=== PATIENT | male | born 1930 | race Caucasian/White ===

== ENCOUNTER 2019-03-30 13:45 | Inpatient (IN) | payer OTHER ==
[~2019-03-30] VITALS: Ht 185.4 cm; Wt 113.8 kg
[~2019-03-30 13:45] MED LIST: IPRAT-ALBUT 0.5-3 ML; LOPRESSOR50 MG PO; MUCINEX1200 MG PO
[2019-03-30 13:47] VITALS: BP 146/71
[2019-03-30 14:01] LABS: ABSOLUTE NEUTROPHILS 9.7 thou/uL (1.4-8.2); BASOPHILS 0.2 % (0.0-2.0); HEMATOCRIT 39.5 % (42.0-52.0); LYMPHOCYTES 2.4 % (24.0-44.0); MCH 29.3 pg (26.0-34.0); MCHC 32.9 g/dL (28.0-37.0); MCV 88.8 fL (80.0-100.0); MONOCYTES 6.6 % (1.0-8.0); PLATELET COUNT 151 thou/uL (150-400); POLYS 90.8 % (36.0-66.0); RBC 4.45 mil/uL (4.50-6.00); RDW 15.1 % (10.5-14.5); WBC 10.7 thou/uL (4.0-11.0)
[2019-03-30 14:10] LABS: ANION GAP 8 mmol/L (7-16); BUN 23 mg/dL (7-18); CALCIUM 9.4 mg/dL (8.5-10.1); CHLORIDE 102 mmol/L (98-107); CO2 27 mmol/L (21-32); CREATININE 1.1 mg/dL (0.7-1.3); GLUCOSE 190 mg/dL (74-106); POTASSIUM 4.4 mmol/L (3.5-5.1); SODIUM 137 mmol/L (136-145)
[2019-03-30 14:19] LABS: ALBUMIN 2.7 g/dL (3.4-5.0); LIPASE 50 U/L (73-393); SGOT 44 U/L (15-37); SGPT 20 U/L (30-65); TOTAL BILIRUBIN 2.5 mg/dL (<0.1-1.0); TROPONIN-I <0.06 ng/mL (<0.06)
[2019-03-30 16:48] VITALS: BP 126/51
[2019-03-30 18:49] VITALS: BP 122/60
[2019-03-30 19:25] LABS: URINE BILIRUBIN NEGATIVE (Negative); URINE BLOOD TRACE (Negative); URINE CLARITY CLEAR; URINE COLOR YELLOW; URINE GLUCOSE-RANDOM* NEGATIVE (Negative); URINE KETONES NEGATIVE (Negative); URINE LEUKOCYTES-REFLEX NEGATIVE (Negative); URINE NITRITE-REFLEX NEGATIVE (Negative); URINE PROTEIN (DIPSTICK) TRACE (Negative)
[2019-03-30 19:48] VITALS: BP 133/62
[2019-03-30 23:57] VITALS: BP 121/69
[2019-03-31 04:33] VITALS: BP 134/72
--- NOTE | 2019-03-31 05:04 | NUR ---
ASSUMED PT CARE AT 1900. PT WAS AN ER ADMIT AT SHIFT CHANGE. PT IS ALERT AND ORIENTED. FAMILY AT BEDSIDE. PT COMPLAINS OF PAIN TO RIGHT UPPER QUADRANT. PAIN MED ADMINISTERED. ADMISSION ASSESSMENT AND EDUCATION COMPLETED WITH FAMILY. PT IS STABLE. VITAL SIGNS STABLE. LOW GRADE FEVER NOTED. PT IS STABLE THROUGHOUT THE NIGHT. NO N&V. PT IS NPO. DENIES ANY FURTHER NEEDS AT THIS TIME.
--- NOTE | 2019-03-31 07:32 | EKG ---
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
[2019-03-31 08:00] VITALS: BP 142/69
[2019-03-31 10:17] LABS: ABSOLUTE NEUTROPHILS 10.9 thou/uL (1.4-8.2); BASOPHILS 0.4 % (0.0-2.0); LYMPHOCYTES 3.7 % (24.0-44.0); MCHC 32.3 g/dL (28.0-37.0); MCV 89.8 fL (80.0-100.0); MONOCYTES 6.6 % (1.0-8.0); PLATELET COUNT 118 thou/uL (150-400); POLYS 89.3 % (36.0-66.0); RBC 4.12 mil/uL (4.50-6.00); RDW 15.5 % (10.5-14.5); WBC 12.2 thou/uL (4.0-11.0)
[2019-03-31 10:31] LABS: ALBUMIN 2.2 g/dL (3.4-5.0); CREATININE 1.1 mg/dL (0.7-1.3); POTASSIUM 3.8 mmol/L (3.5-5.1); TOTAL BILIRUBIN 2.3 mg/dL (<0.1-1.0); TOTAL PROTEIN 6.1 g/dL (6.4-8.2)
--- NOTE | 2019-03-31 10:59 | 2DMMODE ---
[facility] [address] [place] [address] 2 D/M-MODE ECHOCARDIOGRAM Name: PATRICIA VILLANUEVA Room #: 206-P ADM IN M.R.#: [id number] Admission: 03/30/19 Attend Phys: Zaira Choi MD Discharge: Date of : [birth year] Report #: [id number] THIS REPORT FOR: //name// APPROVED REPORT Study performed: 03/31/2019 10:05:45 EXAM: Comprehensive 2D, Doppler, and color-flow Echocardiogram Patient Location: Bedside Room #: 206 Status: routine BSA: 2.39 HR: 110 bpm BP: 134/72 mmHg Rhythm: Atrial Fibrillation Other Information Study Quality: Adequate Technically limited study due to inability to position patient, body habitus. Indications Atrial Fibrillation CAD Hypertension/HDD Pre-op 2D Dimensions RVDd: 41.94 mm IVSd: 14.91 (7-11mm) LVOT Diam: 24.13 (18-24mm) LVDd: 44.39 mm PWd: 14.46 (7-11mm) Ascending Ao: 35.54 (22-36mm) LVDs: 29.08 (25-40mm) Aortic Root: 37.56 mm IVC: 17.00 mm Volumes Left Atrial Volume (Systole) Single Plane 4CH: 73.50 mL Single Plane 2CH: 105.73 mL LA ESV Index: 42.00 mL/m2 Aortic Valve AoV Peak Pietro.: 1.14 m/s AO Peak Gr.: 5.23 mmHg LVOT Max P.03 mmHg LVOT Max V: 0.87 m/s VANDA Vmax: 3.48 cm2 [facility] [address] [address] 2 D/M-MODE ECHOCARDIOGRAM Name: PATRICIA VILLANUEVA Room #: 206-P ADM IN .R.#: [id number] Admission: 03/30/19 Attend Phys: Zaira Choi MD Discharge: Date of : [birth year] Report #: [id number] Mitral Valve MV Decel. Time: 168.54 ms MV E Max Pietro.: 1.31 m/s IVRT: 50.75 ms Pulmonary Valve PV Peak Pietro.: 1.00 m/s PV Peak Gr.: 4.08 mmHg Tricuspid Valve TR Peak Pietro.: 2.77 m/s RAP Estimate: 5.00 mmHg TR Peak Gr.: 30.73 mmHg PA Pressure: 36.00 mmHg Left Ventricle The left ventricle is normal size. Mild to moderate concentric left ventricular hypertrophy. The left ventricular systolic function is normal. The left ventricular ejection fraction is within the normal range. LVEF is 60-65%. This study is not technically sufficient to allow evaluation of the LV diastolic function due to atrial fibrillation. Right Ventricle Right ventricle is mildly dilated. The right ventricular systolic function is normal. Atria Left atrium is moderately dilated. Right atrium is moderately dilated. Aortic Valve Aortic valve is mildly calcified. Trace to mild aortic regurgitation. There is no aortic valvular stenosis. Mitral Valve The mitral valve is normal in structure. Mild mitral regurgitation. No evidence of mitral valve stenosis. Tricuspid Valve The tricuspid valve is normal in structure. Mild tricuspid regurgitation. PAP is estimated at 36 mmHg. Pulmonic Valve Pulmonic valve is not well visualized. [employer] [facility] [address] [place] [address] 2 D/M-MODE ECHOCARDIOGRAM Name: PATRICIA VILLANUEVA Room #: 206-P ADM IN M.R.#: [id number] Admission: 03/30/19 Attend Phys: Zaira Choi MD Discharge: Date of : [birth year] Report #: [id number] The aortic root is normal in size. IVC is normal in size and collapses >50% with inspiration. Pericardium There is no pericardial effusion. <Conclusion> The left ventricle is normal size. LVEF is 60-65%. Right ventricle is mildly dilated. Left atrium is moderately dilated. Right atrium is moderately dilated. Aortic valve is mildly calcified. Trace to mild aortic regurgitation. The mitral valve is normal in structure. Mild mitral regurgitation. The tricuspid valve is normal in structure. Mild tricuspid regurgitation. PAP is estimated at 36 mmHg. <ELECTRONICALLY SIGNED> By: Young Cantu MD 03/31/19 1058 [id number] [id number] Young Cantu MD /INF
[2019-03-31 12:27] VITALS: BP 156/72
--- NOTE | 2019-03-31 13:42 | NUR ---
met with patient and family at bedside. Patient admits from [facility] therapy unit. Family reports he has not been there that long and plan is to return to [facility] at hi. Left [facility] admission a message and plan to update facility. Post plan from [facility] is to live with his dtr.
[2019-03-31 15:47] VITALS: BP 135/57
--- NOTE | 2019-03-31 16:52 | NUR ---
I have reviewed the documentation by MARGA ROYAL from 03/31/19 to 03/31/19 and I concur with it. MJ LEON
--- NOTE | 2019-03-31 16:58 | NUR ---
[facility]FIR[facility] AND LEFT MSG WITH ALICIA IN ADM THAT PT IN RM 206.
--- NOTE | 2019-03-31 19:06 | NUR ---
ASSUMMED PT CARE AT APPROXIMATELY 0700. PT A&O X4. ASSESSMENT CHARTED. FALL PRECAUTIONS IN PLACE. PT DENIES HAVING CHEST PAIN. PT STATES HE BECOMES SOB ON EXERSION. PT O2 SAT STABLE. PT STATES HE HAS ACUTE PAIN IN HIS ABDOMINAL AREA. PT RECEIVED ANALGESICS. PT STATED PAIN WAS RELEIVED. PT STATED HE WAS NAUSEATED. PT RECIEVED NAUSEA MEDICATION. PT'S NAUSEA WAS RELIEVED. PT HAD A LOW GRADE FEVER. NOTIFIED. STATED TO CONTINUE TO MONITOR. PT CONTINUED TO BE IN PAIN BETWEEN PAIN MEDICATION DOSES. NOTIFIED DR. ORDERED NEW MEDS. NEW MEDS IMPLEMENTED. WILL CONTINUE TO MONITOR PAIN. PT AND PT'S FAMILY NOTIFIED ABOUT POC. PT AND PT'S FAMILY STATED UNDERSTANDING AND DENIED HAVING FURTHER CONCERNS. PT COMFORTABLE AND SLEEPING IN BED. PT DENIES HAVING FURTHER CONCERNS. VITAL SIGNS STABLE.
[2019-03-31 20:11] VITALS: BP 137/55
--- NOTE | 2019-04-01 04:38 | NUR ---
ASSUMED PT CARE AT 1900. WITH NO SIGN OF DISTRESS NOTED IN PT. PT IS DROWSY AND SLEEPY. NO SIGN OF DISTRESS NOTED, ASSESSMENT COMPLETED AND DOCUMENTED. FALL PRECAUTION IN PLACE. SCHEDULED MEDS ADMINISTERED TO PT. PT TOLERATED PO INTAKE. DENIES ANY FURTHER NEEDS AT THIS TIME.
[2019-04-01 05:32] LABS: ABSOLUTE NEUTROPHILS 10.2 thou/uL (1.4-8.2); BASOPHILS 0.1 % (0.0-2.0); HEMATOCRIT 34.4 % (42.0-52.0); HEMOGLOBIN 11.1 gm/dL (14.0-18.0); LYMPHOCYTES 4.8 % (24.0-44.0); MCH 29.3 pg (26.0-34.0); MCHC 32.3 g/dL (28.0-37.0); MCV 90.8 fL (80.0-100.0); MONOCYTES 5.4 % (1.0-8.0); PLATELET COUNT 127 thou/uL (150-400); POLYS 89.7 % (36.0-66.0); RBC 3.79 mil/uL (4.50-6.00); RDW 15.7 % (10.5-14.5); WBC 11.4 thou/uL (4.0-11.0)
[2019-04-01 05:35] LABS: CALCIUM 8.9 mg/dL (8.5-10.1); CREATININE 1.2 mg/dL (0.7-1.3); POTASSIUM 3.4 mmol/L (3.5-5.1); TOTAL BILIRUBIN 1.8 mg/dL (<0.1-1.0); TOTAL PROTEIN 5.9 g/dL (6.4-8.2)
[2019-04-01 05:50] VITALS: BP 146/54
[2019-04-01 06:40] LABS: ALBUMIN 2.1 g/dL (3.4-5.0)
[2019-04-01] MEDS ORDERED: FUROSEMIDE 20 M20 MG PO (07:15)
[2019-04-01] MEDS ORDERED: KLOR-CON M2020 MEQ PO (07:16)
[2019-04-01] MEDS ORDERED: FLONASE 0.05%50 MCG NASAL (07:17)
[2019-04-01] MEDS ORDERED: COLACE100 MG PO (07:18)
--- NOTE | 2019-04-01 07:23 | H ---
[facility] [place] [address] HISTORY AND PHYSICAL Name: PATRICIA VILLANUEVA Room #: 206-P ADM IN M.R.#: [id number] Admission: 03/30/19 Attend Phys: Zaira Choi MD Discharge: Date of : [birth year] Report #: [id number] THIS REPORT FOR: //name// CC: Zaira ALEJO physician/PCP DATE OF SERVICE: 03/30/2019 ADMISSION NOTE HISTORY OF PRESENT ILLNESS: The patient is an 88-year-old male who was brought to the Emergency Room because of nausea, vomiting and abdominal pain that started on Sunday morning. The patient was having extensive pain at that time. The patient denies any fever or chills. The patient said that he had a bowel movement on Sunday, but since then he did not have any further bowel movements. The patient on arrival to the Emergency Room was found to have acute abdomen with cholecystitis. The patient went into atrial fibrillation with rapid ventricular response, but that was corrected with the use of Cardizem. The patient denied any chest pain or shortness of breath, but he indicated that taking deep breaths will make his abdominal pain worse. PAST MEDICAL HISTORY: The patient's past medical history is significant for atrial fibrillation for which the patient is chronically anticoagulated. The patient had a previous history of CVA with left hemiparesis. The patient has a history of hypertension. MEDICATIONS: Unfortunately, medications are not available because we did not get a copy of his medications from the correction facility. ALLERGIES: SHRIMP. SOCIAL HISTORY: The patient denies any history of smoking, alcohol use or drug use. FAMILY HISTORY: Not contributory. REVIEW OF SYSTEMS: Negative besides what was mentioned above. PHYSICAL EXAMINATION: VITAL SIGNS: On arrival to the hospital, the patient's temperature was 98.7, pulse 127 that dropped to 93, respirations 35, dropped to 20, blood pressure 146/71. Oxygen saturation is 96%. HEAD AND NECK: Pupils are equal and reacting to light. There is no icterus. Nasal mucosa was normal. Oropharynx was wet. NECK: Supple, no lymphadenopathy. LUNGS: Clear to auscultation with good air entry bilaterally. [facility] [address] [place] [address] HISTORY AND PHYSICAL Name: PATRICIA VILLANUEVA Room #: 206-P ADM IN M.R.#: [id number] Admission: 03/30/19 Attend Phys: Zaira Choi MD Discharge: Date of : [birth year] Report #: [id number] CARDIAC: S1, S2, without any murmur or gallop. ABDOMEN: Showed tenderness mainly on the right side of the abdomen. No rebound tenderness, no rigidity. Bowel sounds are present, but hypoactive. EXTREMITIES: Without any edema. LABORATORY DATA: Showed a white count of 10.7, hemoglobin 13, hematocrit 39.5, platelet count 151, neutrophils are 90%. Lactic acid 2.9. Comprehensive panel showed sodium of 137, potassium 4.4, chloride 102, bicarbonate 27, anion gap 8, BUN 23, creatinine 1.1, glucose 190, AST 44, lipase 50, total bilirubin 2.5, alkaline phosphatase 151, ALT 20, albumin 2.7. Troponin less than 0.06. Abdominal x-ray showed no acute pulmonary process. Multiple calcifications overlying the right upper abdomen could represent gallstones without a distended gallbladder. Ultrasound of the abdomen showed cholelithiasis with gallbladder distention and mild gallbladder wall thickening. There is no pericholecystic fluid and the sonographic [place] sign is negative. Overall, no definitive findings of acute cholecystitis, moderate left hydronephrosis of uncertain etiology, mild splenomegaly, hepatic steatosis. CT of the abdomen showed distended gallbladder with cholelithiasis, gallbladder wall thickening and pericholecystic fluid inflammation, highly suspicious for acute cholecystitis and extra renal pelvis of the left kidney is moderate dilated without dilation of the left ureter suggestive of a chronic UPJ obstruction. There is nonobstructive 1.4 cm calculus within the lower left kidney. Scattered diverticulosis without evidence of diverticulitis. Nonvisualization of the appendix, small fat containing left inguinal hernia. Repeated lactic acid is 2.3, then 2.2. Urinalysis showed trace protein and trace blood. Repeated lactic acid is 2.5. Electrocardiogram showed atrial fibrillation with prolonged QT interval. No previous EKG to compare with. Blood culture is showing no growth. ASSESSMENT AND PLAN: 1. Acute cholecystitis. 2. Atrial fibrillation with rapid ventricular response. 3. Previous history of CVA with left hemiparesis. The patient will be admitted to the hospital with the above-mentioned diagnoses. We had a consultation for a general surgeon and Cardiology because of the atrial fibrillation with rapid ventricular response. The patient is to start on broad spectrum antibiotics. I will contact the assisted to have a list of the patient's medications and sent to us. The patient is on Eliquis. For this reason, we will hold the Eliquis for now and we will hold the surgical intervention for about 2 days. I will continue with the pain management. All the patient's records were reviewed [address] [address] HISTORY AND PHYSICAL Name: PATRICIA VILLANUEVA Room #: 206-P ADM IN M.R.#: [id number] Admission: 03/30/19 Attend Phys: Zaira Choi MD Discharge: Date of : [birth year] Report #: [id number] and the patient's x-rays were reviewed. We will continue to monitor the patient. I discussed this plan with the patient's nurse and with his daughter. <ELECTRONICALLY SIGNED> By: Zaira Choi MD 04/01/19 0723 Zaira Choi MD /nt
[2019-04-01] MEDS ORDERED: XARELTO20 MG PO (07:54)
[2019-04-01 07:59] VITALS: BP 110/40
--- NOTE | 2019-04-01 08:07 | EKG ---
[address] [facility] [place] [address] ELECTROCARDIOGRAM REPORT Name: PATRICIA VILLANUEVA Room #: 206-P ADM IN M.R.#: [id number] Admission: 03/30/19 Attend Phys: Zaira Choi MD Discharge: Date of : [birth year] Report #: [id number] THIS REPORT FOR: //name// 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: LEE : 1930 Requested By: Rudi Bermudez Order Number: [id number] MD: Rudi Bermudez Measurements Intervals [place] Rate: 100 P: [place]: QRS: 3 QRSD: 95 T: 5 QT: 374 QTc: 483 Interpretive Statements Atrial fibrillation Borderline low voltage, extremity leads Borderline prolonged QT interval Compared to ECG 03/30/2019 14:04:45 No significant changes Electronically Signed On 04-01-2019 8:07:38 GEOSCIENTIST by Rudi Bermudez [email or web address] <ELECTRONICALLY SIGNED> By: Rudi Bermudez MD, [facility] 04/01/19806 1 1 Rudi Bermudez MD, FACC /EPI
[2019-04-01 08:13] LABS: APTT 32.2 Seconds (24.5-32.8); INR 1.2; PROTIME 12.5 Seconds (9.3-11.4)
[2019-04-01 12:15] VITALS: BP 128/62
[2019-04-01 16:39] VITALS: BP 150/62
--- NOTE | 2019-04-01 19:40 | NUR ---
ASSUMMED PT CARE AT APPROXIMATELY 700. PT A&O X4. ASSESSMENT CHARTED. FALL PRECAUTIONS IN PLACE. PT DENIES HAVING CHEST PAIN. PT STATES HE BECOMES SOB ON EXERSION. O2 SAT STABLE. PT STATES HE HAS ACUTE PAIN. PT RECEIVED ANALGESICS. PT STATED ANALGESICS HELPED RELEIVE PAIN. PT AND PT FAMILY EDUCATED ABOUT POC. PT AND PT'S FAMILY STATED UNDERSTANDING AND DENIED HAVING FURTHER QUESTIONS. PT DRAIN C/D/I. PT COMFORTABLE IN BED. PT DENIES HAVING FURTHER CONCERNS. VITAL SIGNS STABLE. BLOOD SUGARS STABLE.
[2019-04-01 19:50] VITALS: BP 138/53
[2019-04-02 03:43] VITALS: BP 148/79
--- NOTE | 2019-04-02 05:23 | NUR ---
ASSUMED PT CARE AT 1900. NO SIGN OF DISTRESS NOTED IN PT. PT ALERT AND ORIENTED. BILIARY DRAIN IN PLACE. PT IS STABLE. DENIES PAIN. VITAL SIGNS STABLE. ASSESSMENT COMPLETED AND DOCUMENTED. FALL PRECAUTION IN PLACE. SCHEDULED MEDS ADMINISTERED TO PT. PT TOLERATED PO INTAKE. NO FURTHER NEEDS AT THIS TIME.
[2019-04-02 05:24] LABS: ALBUMIN 1.9 g/dL (3.4-5.0); CALCIUM 8.3 mg/dL (8.5-10.1); TOTAL BILIRUBIN 1.7 mg/dL (<0.1-1.0); TOTAL PROTEIN 5.3 g/dL (6.4-8.2)
[2019-04-02 05:37] LABS: ABSOLUTE NEUTROPHILS 5.6 thou/uL (1.4-8.2); BASOPHILS 0.1 % (0.0-2.0); HEMATOCRIT 34.2 % (42.0-52.0); HEMOGLOBIN 11.2 gm/dL (14.0-18.0); LYMPHOCYTES 8.9 % (24.0-44.0); MCH 29.5 pg (26.0-34.0); MCHC 32.7 g/dL (28.0-37.0); MCV 90.1 fL (80.0-100.0); MONOCYTES 5.3 % (1.0-8.0); PLATELET COUNT 115 thou/uL (150-400); POLYS 85.7 % (36.0-66.0); RBC 3.79 mil/uL (4.50-6.00); RDW 15.4 % (10.5-14.5); WBC 6.5 thou/uL (4.0-11.0)
[2019-04-02 07:40] VITALS: BP 172/79
[2019-04-02 11:00] VITALS: BP 139/60
--- NOTE | 2019-04-02 13:53 | NUR ---
[facility] AND SPOKE WITH ALICIA IN ADM.
--- NOTE | 2019-04-02 15:47 | NUR ---
[facility] consult. Patient possible candidate for [facility] they are following.
[2019-04-02 16:15] VITALS: BP 160/73
--- NOTE | 2019-04-02 18:17 | NUR ---
ASSUMED CARE AT SHIFT CHANGE, ALERT AND ORIENTED X3-4. BP 139-172/60-70, AFEBRILE, AND AFIB ON THE MONITOR. MEDICATED WITH SCHEDULED MEDICATIONS. VIDEO SWALLOW EVAL COMPLETED TODAY, AND HE REMAINS ON ASPIRATION PRECAUTIONS. BILIARY DRAIN INATCT. DENIES ANY PAIN AND WILL CONTINUE WITH POC.
[2019-04-02 20:12] VITALS: BP 134/61
[2019-04-03 04:11] VITALS: BP 178/72
[2019-04-03 05:27] LABS: ABSOLUTE NEUTROPHILS 3.6 thou/uL (1.4-8.2); BASOPHILS 0.2 % (0.0-2.0); EOSINOPHILS 0.1 % (0.0-3.0); HEMATOCRIT 34.9 % (42.0-52.0); HEMOGLOBIN 11.1 gm/dL (14.0-18.0); LYMPHOCYTES 15.6 % (24.0-44.0); MCHC 31.9 g/dL (28.0-37.0); MCV 90.8 fL (80.0-100.0); MONOCYTES 5.6 % (1.0-8.0); PLATELET COUNT 112 thou/uL (150-400); POLYS 78.5 % (36.0-66.0); RBC 3.84 mil/uL (4.50-6.00); RDW 15.3 % (10.5-14.5); WBC 4.5 thou/uL (4.0-11.0)
[2019-04-03 06:08] LABS: ALBUMIN 1.9 g/dL (3.4-5.0); CALCIUM 8.9 mg/dL (8.5-10.1); CREATININE 0.9 mg/dL (0.7-1.3); TOTAL BILIRUBIN 1.3 mg/dL (<0.1-1.0); TOTAL PROTEIN 6.1 g/dL (6.4-8.2)
[2019-04-03 07:20] VITALS: BP 164/75
[2019-04-03 11:15] VITALS: BP 139/66
--- NOTE | 2019-04-03 13:45 | NUR ---
Pt has been accepted for admission to [facility] and they have a bed for him today. He is medically cleared for dc to rehab today per the attending. The pt is aware and agreeable and states his son was here earlier and family is aware. Care team updated.
[2019-04-03 15:40] VITALS: BP 157/78
--- NOTE | 2019-04-03 17:09 | NUR ---
ASSUMED CARE AT SHIFT CHANGE, AFIB ON THE MONITOR. Q2 POSITIONED FOR COMFORT. MEDS ORDERED. UP IN THE CHAIR WITH PT TODAY. AND WILL CONTINUE WITH POC.
--- NOTE | 2019-04-03 17:15 | NUR ---
I have reviewed the documentation by MARGA ROYAL from 04/03/19 to 04/03/19 and I concur with it. SARA MORROW
[2019-04-03 19:23] VITALS: BP 159/65
--- NOTE | 2019-04-04 01:26 | NUR ---
PATIENTS CARES WAS ASSUMED AT SHIFT CHANGE. PATIENT WAS ASSESSED AND MEDS WERE PASSED. PATIENT TAKES HIS MEDS WHOLE WITH NECTOR THICK APPLE JUICE. PATIENT NEEDS TO BE REINFORCED TO TUCK HIS CHIN DOWN AND SWOLLOW TWICE. HOURLY ROUNDS WEE DONE. THE BED IS IN A LOW AND LOCKED POSITION. THE BED ALARM IS ON
[2019-04-04 03:35] VITALS: BP 185/78
[2019-04-04 04:08] LABS: BASOPHILS 0.1 % (0.0-2.0); EOSINOPHILS 0.5 % (0.0-3.0); HEMATOCRIT 32.6 % (42.0-52.0); HEMOGLOBIN 10.7 gm/dL (14.0-18.0); LYMPHOCYTES 12.1 % (24.0-44.0); MCH 29.5 pg (26.0-34.0); MCHC 32.9 g/dL (28.0-37.0); MCV 89.9 fL (80.0-100.0); MONOCYTES 7.3 % (1.0-8.0); PLATELET COUNT 103 thou/uL (150-400); RBC 3.63 mil/uL (4.50-6.00); RDW 15.1 % (10.5-14.5); WBC 3.7 thou/uL (4.0-11.0)
[2019-04-04 04:28] LABS: ALBUMIN 1.8 g/dL (3.4-5.0); CALCIUM 9.2 mg/dL (8.5-10.1); CREATININE 0.8 mg/dL (0.7-1.3); POTASSIUM 3.5 mmol/L (3.5-5.1); TOTAL BILIRUBIN 1.1 mg/dL (<0.1-1.0); TOTAL PROTEIN 5.8 g/dL (6.4-8.2)
[2019-04-04 07:05] VITALS: BP 175/78
[2019-04-04 08:45] VITALS: BP 152/58
[2019-04-04] MEDS ORDERED: MUCINEX600 MG PO (09:25)
[2019-04-04] MEDS ORDERED: LOPRESSOR25 PO (09:25)
[2019-04-04] MEDS ORDERED: ONDANSETRON HCL4 M1 IV PUSH (09:25)
[2019-04-04] MEDS ORDERED: AUGMENTIN 875-1 EACH PO (09:25)
[2019-04-04] MEDS ORDERED: K-DUR 20 MEQ T20 MEQ PO (09:25)
[2019-04-04] MEDS ORDERED: TYLENOL325 MG PO (09:25)
[2019-04-04 11:25] VITALS: BP 163/60
--- NOTE | 2019-04-04 13:44 | NUR ---
Message rec'd from nursing that the pt's dc to [facility] is on hold today due to bloody drainage. They have reached out to the surgeon. [facility] can accept over the weekend if stable [phone].
[2019-04-04 15:59] LABS: ABSOLUTE NEUTROPHILS 3.1 thou/uL (1.4-8.2); BASOPHILS 0.3 % (0.0-2.0); HEMATOCRIT 34.1 % (42.0-52.0); LYMPHOCYTES 15.4 % (24.0-44.0); MCHC 32.2 g/dL (28.0-37.0); MCV 90.2 fL (80.0-100.0); MONOCYTES 6.8 % (1.0-8.0); PLATELET COUNT 106 thou/uL (150-400); POLYS 76.5 % (36.0-66.0); RBC 3.78 mil/uL (4.50-6.00); RDW 15.1 % (10.5-14.5)
[2019-04-04 16:12] LABS: INR 1.2; PROTIME 12.7 Seconds (9.3-11.4)
[2019-04-04 16:30] VITALS: BP 160/89
--- NOTE | 2019-04-04 18:33 | NUR ---
ASSUMMED PT CARE AT APPROXIMATELY 0700. PT A&O X4. ASSESSMENT CHARTED. FALL PRECAUTIONS IN PLACE. PT DENIES HAVING CHEST PAIN. PT DENIES HAVING SOB. PT DENIES HAVING ACUTE PAIN. PT HAD LOOSE BM X6. NOTIFIED. ORDERED STOOL SAMPLE. SAMPLE COLLECTED. CONTACT ISOLATION PROCAUTIONS IMPLEMENTED. PT BP ELEVATED IN MORNING. RESOLUTION ANALYST NOTIFIED. RESOLUTION ANALYST ORDERED TO GIVE BP MEDS EARLY. ORDER IMPLEMENTED. VITAL SIGNS STABLE. PT'S OUTPUT FROM BILARY DRAIN IS BLOODY. NOTIFIED. PUT IN NEW ORDERS AND STATED TO CONTINUE TO MONITOR PT. ORDERS IMPLEMENTED. CONTINING TO MONITOR DRAIN OUTPUT. BLOOD THINNER HELD PER ORDER. PT AND PT'S FAMILY EDUCATED ABOUT POC. PT AND PT'S FAMILY STATED UNDERSTANDING AND DENIED HAVING FURTHER QUESTIONS. BLOOD SUGARS STABLE. PT COMFORTABLE IN BED. PT DENIES HAVING FURTHER QUESTIONS. VITAL SIGNS STABLE. BLOOD SUGARS STABLE.
[2019-04-05 00:48] VITALS: BP 179/92
[2019-04-05 05:13] VITALS: BP 157/89
--- NOTE | 2019-04-05 07:50 | NUR ---
ALERT.FORGETFUL.TURN Q2 HOURS.LOOSE STOOLS X 2 THIS SHIFT.NO BLOOD NOTED.SANGUINOUS DRAINAGE NOTED ON BILIARY BAG.MONITOR SHOWS AFIB IN THE 80'S.POC CONTINUED.
[2019-04-05 07:55] VITALS: BP 169/79
[2019-04-05 12:10] VITALS: BP 134/78
[2019-04-05 16:00] VITALS: BP 155/64
--- NOTE | 2019-04-05 16:19 | NUR ---
Pt up to bedside chair with assist of RN and PT. sat there 2 hrs, son in the room, Pt eating ensure pudding as a supplement and drinks thickened water about 120ml every 2 hours. pt's son fed him lunch tray while pt sat up in bed.
[2019-04-05 21:05] VITALS: BP 167/81
--- NOTE | 2019-04-06 03:48 | NUR ---
ASSUMED PT CARE AT 1900. VSS. PT A&0X4. ON ROOM AIR, ASSESSMENTS ARE CHARTED. PT STATED THAT HE WOULD RATHER BE ON HIS BACK AND DIDNT WANT TO BE TURNED. OPTIFOAM BOARDER PUT ON PT'S COCCYX. PT IS STABLE, SWALLOWED HIS PILLS WELL WITH APPLESAUCE. NO COMPLAINTS OF PAIN OR DISCOMFORT. WILL CONTINUE TO MONITOR PER POC.
[2019-04-06 05:00] LABS: CALCIUM 8.8 mg/dL (8.5-10.1); CREATININE 0.8 mg/dL (0.7-1.3); POTASSIUM 3.7 mmol/L (3.5-5.1)
[2019-04-06 05:09] LABS: ABSOLUTE NEUTROPHILS 2.9 thou/uL (1.4-8.2); BASOPHILS 0.4 % (0.0-2.0); EOSINOPHILS 2.2 % (0.0-3.0); HEMOGLOBIN 11.9 gm/dL (14.0-18.0); MCH 29.3 pg (26.0-34.0); MCHC 32.9 g/dL (28.0-37.0); MONOCYTES 6.1 % (1.0-8.0); PLATELET COUNT 106 thou/uL (150-400); POLYS 75.3 % (36.0-66.0); RBC 4.05 mil/uL (4.50-6.00); RDW 15.1 % (10.5-14.5); WBC 3.9 thou/uL (4.0-11.0)
[2019-04-06 05:49] VITALS: BP 168/85
[2019-04-06 07:45] VITALS: BP 157/76
[2019-04-06 11:30] VITALS: BP 138/72
--- NOTE | 2019-04-06 16:22 | NUR ---
ASSUMED CARE OF PT AT SHIFT CHANGE. ASSESSMENT CHARTED. MEDS GIVEN PER JUL. VSS. A&OX4. NO C/O PAIN OR SOA. PT HAS NO PROBLEMS WITH SWALLOWING WITH THE ACCOMODATIONS MADE. PT X2 ASSIST D/T LEFT SIDED WEAKNESS. DISCHARGE ORDERS COMPLETE. ALL BELONGINGS SENT WITH PT. PT TRANSPORTED TO N VIA WHEELCHAIR. SON ACCOMPANIED PT.
--- NOTE | 2019-04-18 16:25 | HC ---
[facility] [address] [address] CONSULTATION Name: PATRICIA VILLANUEVA Room #: 206-P [facility] IN M.R.#: [id number] Admission: 03/30/19 Attend Phys: Zaira Choi MD Discharge: 04/06/19 Date of : [birth year] Report #: [id number] THIS REPORT FOR: //name// CC: Zaira Choi [facility] physician/PCP DATE OF SERVICE: 04/02/2019 HISTORY OF PRESENT ILLNESS: The patient is an 88-year-old white male who was admitted to [facility] with nausea, vomiting, and abdominal pain. The patient has a prior history of a recent CVA with left hemiparesis in 02/2019 while living down in [place]. After further improving as far as his overall function, he was transferred via a medical van to [place]. He was at [facility] receiving nursing home facility therapy. While at [facility], he had the onset of the nausea, vomiting and abdominal discomfort. He also went into atrial fibrillation with rapid ventricular rate, was placed on Cardizem. Workup was consistent with an acute cholecystitis. He underwent a cholecystostomy placement and surgery is following. He does have a cough with early signs of fluid overload and is being closely medically managed. We are seeing him in rehabilitation medicine consultation. PAST MEDICAL HISTORY: Includes atrial fibrillation, on chronic anticoagulation, history of prior CVA with left hemiparesis as noted above, hypertension, coronary artery disease with right coronary artery stent in 2010. ALLERGIES: SHRIMP. MEDICATIONS: Please see the full medication listing. SOCIAL HISTORY: As noted above. The plan is to stay with the daughter at the daughter's house. He could stay on one floor. She works during the day. He has also an involved son who is here visiting. REVIEW OF SYSTEMS: No current complaints of chest pain, shortness of breath or abdominal discomfort. PHYSICAL EXAMINATION: GENERAL: He is an 88-year-old white male who appears in no distress, but is tired. Tends to fatigue fairly quickly. VITAL SIGNS: His temperature is 97.9, pulse 75, respirations 20, blood pressure 139/60. NEUROLOGIC: He is able to follow basic 1 step commands. He has depressed left nasolabial fold. He is on nasal cannula 2 liters. He does have a cough. EXTREMITIES: Functional range of motion of the right upper and right lower extremity. Left upper extremity reveals flaccid left upper extremity with just a trace elbow flexion. He does have an isotonic glove in place. Tone is [facility] [address] [place] [address] CONSULTATION Name: PATRICIA VILLANUEVA Room #: 206-P [facility] IN M.R.#: [id number] Admission: 03/30/19 Attend Phys: Zaira Choi MD Discharge: 04/06/19 Date of : [birth year] Report #: [id number] decreased. Left lower extremity, decreased tone has a little more movement of that left lower extremity, probably a grade 3+/5. He has a better movement a grade 4-/5, right upper and right lower extremity. He is mod assist with sit to stand. On examination of his abdomen, he does have the abdominal drain in place. ASSESSMENT: This is an 88-year-old white male with the following problem list: 1. Medical complexity with generalized debilitation. 2. Left-sided hemiparesis, upper extremity greater than lower extremity with dense left upper extremity involvement. 3. Acute cholecystitis, status post cholecystostomy placement. 4. Cough with early signs of fluid overload. 5. Atrial fibrillation with rapid ventricular rate, status post Cardizem. 6. Recent history of cerebrovascular accident with left hemiparesis. 7. Coronary artery disease with prior right coronary artery stenting. PLAN: Uncertain if the patient has the tolerance for an acute inpatient rehabilitation stay. His daughter does work and he would need to be independent for basic cares. The patient had been mobilizing better over at [facility], gait up to 90 feet with a walker and has had a significant decline in his overall function with the cholecystitis and above noted medical comorbidities. At this point, we will follow along with you and see how he tolerates his therapies and further assess rehab therapy level. Thank you for asking us to assist in this patient's care. <ELECTRONICALLY SIGNED> By: Mickey Maldonado MD 04/18/19 1625 [id number] [id number] Mickey Maldonado MD /nt
== END 2019-04-06 12:21 | DRG 871 ==
LOC: ER 13:45 → EROBS 18:36 → 2N 18:36
PROVIDERS: Emergency Medicine; Internal Medicine; Radiology Vascular & Interventional Radiology; Surgery; ADMIT Internal Medicine
PROC: 0F9430Z Drainage of Gallbladder with Drainage Device, Percutaneous Approach (ICD-10-PCS; principal; 2019-04-01)
DX: A41.9 Sepsis, unspecified organism (principal); E43 Unspecified severe protein-calorie malnutrition; K81.0 Acute cholecystitis; I48.20 Chronic atrial fibrillation, unspecified; I69.354 Hemiplegia and hemiparesis following cerebral infarction affecting left non-dominant side; D68.69 Other thrombophilia; K62.5 Hemorrhage of anus and rectum; I25.10 Atherosclerotic heart disease of native coronary artery without angina pectoris; I10 Essential (primary) hypertension; G51.0 Bell's palsy; N40.0 Benign prostatic hyperplasia without lower urinary tract symptoms; K82.8 Other specified diseases of gallbladder; E78.5 Hyperlipidemia, unspecified; E87.70 Fluid overload, unspecified; D69.6 Thrombocytopenia, unspecified; E11.9 Type 2 diabetes mellitus without complications; R13.10 Dysphagia, unspecified; K57.90 Diverticulosis of intestine, part unspecified, without perforation or abscess without bleeding; R19.7 Diarrhea, unspecified; R16.0 Hepatomegaly, not elsewhere classified; L98.429 Non-pressure chronic ulcer of back with unspecified severity; Z66 Do not resuscitate; D64.9 Anemia, unspecified; Z90.49 Acquired absence of other specified parts of digestive tract; Z88.8 Allergy status to other drugs, medicaments and biological substances; Z79.01 Long term (current) use of anticoagulants; Z95.5 Presence of coronary angioplasty implant and graft; Z68.33 Body mass index [BMI] 33.0-33.9, adult
CPT/HCPCS: 10081

== ENCOUNTER 2019-04-03 13:41 | Inpatient (IN) | payer OTHER ==
[~2019-04-03] VITALS: Ht 185.4 cm; Wt 113.4 kg
[~2019-04-03 13:41] MED LIST changes: +COLACE100 MG PO; +FLONASE 0.05%50 MCG NASAL; +FUROSEMIDE 20 M20 MG PO; +KLOR-CON M2020 MEQ PO; +XARELTO20 MG PO
[2019-04-04] MEDS ORDERED: LOPRESSOR25 PO (09:25)
[2019-04-04] MEDS ORDERED: ONDANSETRON HCL4 M1 IV PUSH (09:25)
[2019-04-04] MEDS ORDERED: TYLENOL325 MG PO (09:25)
[2019-04-04] MEDS ORDERED: AUGMENTIN 875-1 EACH PO (09:25)
[2019-04-04] MEDS ORDERED: MUCINEX600 MG PO (09:25)
[2019-04-04] MEDS ORDERED: K-DUR 20 MEQ T20 MEQ PO (09:25)
[2019-04-06 13:45] VITALS: BP 127/64
--- NOTE | 2019-04-06 16:24 | NUR ---
ASSUMED CARE OF PT AT 1200. REPORT RECEIVED FROM NURSE ON PREVIOUS UNIT PRIOR TO PT ARRIVING ON UNIT. VITAL SIGNS OBTAINED, ADMISSION ASSESSMENT COMPLETED, ADMISSION EDUCATION GIVEN, ADMISSION FORMS SIGNED. PT DAUGHTER AND SON AT BEDSIDE. PT DENIES PAIN. COCCYX RED WITH EXCORIATION PRESENT. PT TURNED Q2H AND LOW AIR LOSS PUMP ORDERED. BILIARY DRAIN TO RUQ DRAINING APPROPRIATELY. SIGNIFICANT LEFT SIDED HEMIPARESIS. PT IS A&OX4, COURSE LUNG SOUNDS IN BILATERAL LOWER LOBES AND IN RIGHT UPPER LOBE. +2 PITTING EDEMA IN BLE, +1 PITTING EDEMA TO BUE. FOLLOWING TRANSFER WITH PT PT BECAME ASHEN, DIAPHORETIC, REPORTED SOB, VITAL SIGNS OBTAINED AT THAT TIME SHOWED HR 32 AND O2 86%. PT RECOVERED AFTER A COUPLE MINUTES OF REST. DR. HILL NOTIFIED AND INSTRUCTED THIS NURSE TO LOWER METOPROLOL TO 12.5MG BID FROM 25MG BID AND CONSULT CARDIOLOGY. NURSE CALLED CARDIOLOGY CALL SERVICE AND DR. GUAMAN RETURNED CALL. EKG ORDERED, AWAITING RESULTS. PT IN BED WITH CHILDREN AT BEDSIDE. FALL PRECATIONS IN PLACE AND NURSING WILL CONTINUE TO MONITOR.
[2019-04-06 19:56] VITALS: BP 144/74
--- NOTE | 2019-04-07 02:10 | NUR ---
PT ASSESSMENT COMPLETED AND VSS. MEDS GIVEN ORDERED AND WELL TOLERATED. FALL PRECAUTIONS IN PLACE. ASST WITH FREQUENT REPOSITION FOR COMFORT. WOUND CARE CONSULT WILL BE ORDERED. SLEEPING WELL. SAT WNL ON RA. COARSE COUGH CONTINUES. WILL CONTINUE TO MONITOR FREQUENTLY.
[2019-04-07 05:47] LABS: HEMATOCRIT 36.5 % (42.0-52.0); HEMOGLOBIN 12.2 gm/dL (14.0-18.0); MCH 29.6 pg (26.0-34.0); MCHC 33.4 g/dL (28.0-37.0); MCV 88.8 fL (80.0-100.0); RBC 4.11 mil/uL (4.50-6.00); RDW 15.2 % (10.5-14.5); WBC 3.7 thou/uL (4.0-11.0)
[2019-04-07 08:00] VITALS: BP 145/76
[2019-04-07 08:02] LABS: CREATININE 0.9 mg/dL (0.7-1.3); POTASSIUM 3.8 mmol/L (3.5-5.1)
--- NOTE | 2019-04-07 08:02 | EKG ---
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 : 1930 Requested By: Gamal Childs Order Number: [id number] MD: Rudi Bermudez Measurements Intervals [place] Rate: 93 P: [place]: QRS: -9 QRSD: 88 T: 26 QT: 408 QTc: 508 Interpretive Statements Atrial fibrillation Poor R wave progression Compared to ECG 04/01/2019 07:12:54 No significant changes Electronically Signed On 04-07-2019 8:02:05 HEALTH RECORDS TECHNOLOGY TEACHER by Rudi Bermudez [email or web address] <ELECTRONICALLY SIGNED> By: Rudi Bermudez MD, [facility] 04/07/19 08 D: [id number] Rudi Bermudez MD, FACC /EPI
--- NOTE | 2019-04-07 08:52 | NUR ---
WOUND CARE CONSULT BILAT EXCORIATION BUTTOCKS W/ PRESSURE INJURY SACRUM, ECCHYMOSIS PRESENT, COOPERATIVE AND ALERT, SON AT BS, STAGE 2 ULCER, SEE PROCESS INTERVENTION FOR DETAILS, INSIDE SALES PROFESSIONAL INFORMED OF RECOMMENDATIONS, PHOTO IN CHART RECOMMENDATION; CONT W/ LOW AIR LOSS PUMP, ZGUARD DAILY AND PRN TO BUTTOCKS/ SACRAL AREA DAILY AND PRN, OFF LOADING PRESSURE RELIEF Q 2 HOURS WHILE AWAKE
--- NOTE | 2019-04-07 15:00 | NUR ---
chart review. cm visited with pt and son jane at bedside. pt was able to make his needs know. intro to cm, team meeting and dcp. per pt and son " going to live in house with daughter viktoriya espinoza nurse who works at [employer] [facility]. lived [place] in [place] had stroke and i was completely independent prior to stroke. driving, manage on medication. dr in [place] dr flores and here going to be with [facility] dr salgado. on nectar thick liquids."/pt and son. will cont following as needed for dc needs. been to skilled rehab at [facility].
--- NOTE | 2019-04-07 17:51 | NUR ---
PT ALERT AND ORIENTED TIMES FOUR. VSS, DENIES NENO/SOA. PT WORKED WELL WITH PT/OT TODAY. PT TOLERATES MEDS AND MEALS. PT FAMLIY AT BEDSIDE FOR MOST OF THE SHIFT. PT SLOWLY PROGRESSING [facility] POC GOALS
[2019-04-07 19:50] VITALS: BP 118/67
[2019-04-08 00:05] LABS: GLYCOHEMOGLOBIN (HGB A1C) 5.9 % (4.8-5.6)
--- NOTE | 2019-04-08 04:18 | NUR ---
TURNED SIDE TO SIDE Q 2 HOURS AND AFTER LOOSE BM. Z-GUARD TO BILATERAL BUTTOCKS, USING URINAL. LEFT HEMIPARESIS.
[2019-04-08 08:00] VITALS: BP 131/82
--- NOTE | 2019-04-08 12:48 | NUR ---
team meeting, recommendation: re team. pt starting vital stim with st and new estim for hand. pt on mech soft nectar thick with chin tuck.
--- NOTE | 2019-04-08 15:41 | NUR ---
ASSUMED CARES AT 0700. PT AWAKE, ALERT AND ORIENTED *4. C/O OF MILD PAIN AROUND SACRAL WOUND, REPOSITIONED Q2H. SACRAL WOUND CLEANED AND Z-GUARD APPLIED. PT CONTINUES TO HAVE BLE EDEMA, EXTREMITIES ELEVATED. T-TUBE REMAINS INTACT AND PATENT, DRAINAGE IS CREAM WITH WHITISH SEDIMENTS. PT CONTINUES TO HAVE LOOSE STOOLS (CONTINENT). UP WITH MAX ASSIST, PIVOT TRANSFERS. Q1H VISUAL CHECKS. CALL LIGHT WITHIN REACH. FALL PRECAUTIONS IN PLACE
[2019-04-08 19:18] VITALS: BP 133/65
--- NOTE | 2019-04-09 04:49 | NUR ---
2 LOOSE STOOLS AROUND MIDNIGHT. PATIENT CALLS IMMEDIATELY. PATIENT HAS SOME PERIRECTAL REDNESS AND SMALL AREAS OF BREAKDOWN ON BILATERAL BUTTOCKS. ALL AREAS COVERED WITH Z-GUARD PASTE AND LEFT OPEN TO AIR WITH PATIENT TO HIS SIDE ANY TIME NOT TAKING PILLS, APPLESAUCE, AND LIQUIDS
--- NOTE | 2019-04-09 07:11 | HC ---
[facility] [place] [address] CONSULTATION Name: PATRICIA VILLANUEVA Room #: 516-1 ADM IN M.R.#: [id number] Admission: 04/06/19 Attend Phys: Mickey Maldonado MD Discharge: Date of : [birth year] Report #: [id number] THIS REPORT FOR: //name// CC: Mickey Maldonado [facility] physician/PCP CONSULTATION REPORT FOR MEDICAL MANAGEMENT HISTORY OF PRESENT ILLNESS: The patient is an 88-year-old male who was transferred to the Inpatient Rehab at [facility]. The patient diagnoses include; 1. Cholecystitis, status post cholecystostomy tube. 2. Atrial fibrillation. 3. Diastolic congestive heart failure. 4. Cough with dyspnea. 5. Status post cerebrovascular accident with left hemiparesis. 6. Thrombocytopenia. 7. Sacral decubital ulcer. MEDICATIONS: Reviewed and reconciled. ALLERGIES: To SHRIMP. SOCIAL HISTORY: The patient denies any smoking, alcohol use or drug use. FAMILY HISTORY: Noncontributory. REVIEW OF SYSTEMS: The patient denies any headache, any blurred vision, runny nose, sore throat, cough, chest pain, shortness of breath or palpitation. He denies any nausea, vomiting or abdominal pain. The patient has been having loose stool and he was ruled out for C. difficile colitis. The patient denies any pain in the arms or legs. PHYSICAL EXAMINATION: VITAL SIGNS: Showed a temperature of 36.7, pulse 84, respirations 20, blood pressure 144/76. HEAD AND NECK: Remarkable for normal sclera and no drainage from the nose or ears, wet mucous membrane. NECK: Supple, no lymphadenopathy. LUNGS: Showed some crackles involving the bases of both lung nevarez. CARDIAC: S1, S2. ABDOMEN: Benign. Bowel sounds were positive. EXTREMITIES: Without any edema. The patient has a stage 3 sacral decubital ulcer. LABORATORY DATA: Showed white count of 3.7, hemoglobin 12.2, hematocrit 36.5, platelet count 109. A 12-lead EKG showed atrial fibrillation with prolonged QT [address] [address] CONSULTATION Name: PATRICIA VILLANUEVA Room #: 516-1 ADM IN .R.#: [id number] Admission: 04/06/19 Attend Phys: Mickey Maldonado MD Discharge: Date of : [birth year] Report #: [id number] interval without any significant changes. ASSESSMENT: 1. Acute cholecystitis, status post cholecystostomy tube placement. 2. Atrial fibrillation. 3. An episode of bradycardia. 4. Status post cerebrovascular accident with left hemiparesis. 5. Diarrhea. 6. Diastolic congestive heart failure. 7. Chronic cough. PLAN: The patient was admitted to the hospital with the above-mentioned diagnoses. The patient is supposed to start rehabilitation. The patient is to continue his current medications. We cut down the beta beatrice to 12.5 mg twice a day because of the patient's bradycardia. The patient is supposed to be seen by Wound Care in addition to rehabilitation. We will continue to monitor the patient. <ELECTRONICALLY SIGNED> By: Zaira Choi MD 04/09/1911 1 Zaira Choi MD /nt
[2019-04-09 10:30] VITALS: BP 136/67
[2019-04-09 19:38] VITALS: BP 129/68
--- NOTE | 2019-04-09 19:52 | NUR ---
ASSUMED CARE OF PT AT 0715. PT IS A&OX4 AND VITAL SIGNS ARE STABLE. DENIES PAIN AND PARTICIPATED IN SCHEDULED THERAPIES. OPEN AREA TO THE SACRUM, PT TURNED Q2H, BARRIER CREAM APPLIED, AND AIR LOSS MATTRESS IN PLACE. FAMILY AT THE BEDSIDE MOST OF SHIFT. LOOSE STOOLS REPORTED, HELD BOWEL MEDICAITONS, SAMPLE SENT TO LAB. CONTINUE ISOLATION FOR C-DIFF PRECATIONS WHILE AWAITING SAMPLE RESULTS. FALL PRECATIONS IN PLACE AND NURISNG WILL CONTINUE TO MONITOR.
--- NOTE | 2019-04-10 03:03 | NUR ---
patient aox3 makes needs known. patient turned q 2 hours. patient encouraged fluids. patient encourage take deep breaths. lungs are coarse, no shortness of air or distress noted this shift.patient needs total assistance with adl, bed mobility, transfer and toileting. patient needs x2 assist. call light and personal items within reach. patient in bed asleep at this time breathing regular and unlaboured.
[2019-04-10 10:30] VITALS: BP 127/52
--- NOTE | 2019-04-10 18:21 | NUR ---
ASSUMED CARE OF PT AT 0715. PT IS A&OX4 AND VITAL SIGNS ARE STABLE. ACCU CHECKS ACHS. DENIES PAIN. TURNED Q2H AND LOW AIRLOSS MATTRESS IN PLACE. SACRUM WOUND CLEANED AND ZGUARD APPLIED NEEDED. PT CALLS APPROPRIATEL, FALL PRECAUTIONS IN PLACE AND NURSING WILL CONTINUE TO MONITOR.
[2019-04-10 21:20] VITALS: BP 158/76
--- NOTE | 2019-04-11 01:03 | NUR ---
PT ALERT AND ORIENTED X 4. RLQ BILIARY DRAIN INTACT WITH BROWN DRAINAGE. LEFT SIDED WEAKNESS. PT C/O PAIN IN HIS LEFT ARM. TYLENOL GIVEN WITH LITTLE RELIEF. PT REPOSITIONED OFF LEFT SIDE AND HAS BEEN SLEEPING ON HOURLY ROUNDS. PT TAKES MEDS IN APPLESAUCE. BED ALARM ON FOR SAFETY.
[2019-04-11 08:25] VITALS: BP 134/77
--- NOTE | 2019-04-11 09:30 | NUR ---
ASSUMED CARE AT 0700. PATIENT IS ALERT AND ORIENTED X4, BUT FORGETFUL. PATIENT LEFT ARM IS FLACCID, AND PATIENT HAS LEFT SIDED WEAKNESS. LUNGS ARE COARSE AND DEMINISHED. PATIENT TAKES MEDS IN PUDDING. PATIENT IS INCONTINENT OF URINE AND STOOL. UP IN BED FOR BREAKFAST WITH S.T. FALL AND SAFETY PROTOCOLS IN PLACE. DENIES PAIN AT THIS TIME. PATIENT HAS RIGHT QUAD BILARY DRAIN. CONTINUES TO PROGRESS TOWARDS D/C GOALS. WILL CONTINUE TO MONITER.
[2019-04-11 19:21] VITALS: BP 142/73
--- NOTE | 2019-04-12 03:49 | NUR ---
ASSUMED CARE AT APPROX 1900 EVENING 04/11. PT LYING IN BED WITH HEAD OF BED ELEVATED AT CHANGE OF SHIFT. PT INCONTINENT OF BM X3, ASSISTED WITH CHANGING AND CLEANING, BARRIER CREAM APPLIED. PT TOOK HS MEDS WITH PUDDING TOLERATING WELL. PT APPEARS TO BE SLEEPING SOUNDLY AT PRESENT. BED ALARM ON AND CALL LIGHT IN REACH. WILL CONTINUE TO MONITOR.
[2019-04-12 09:36] VITALS: BP 134/72
--- NOTE | 2019-04-12 10:01 | NUR ---
AT APPROXIMATELY 0930 PHYSICAL THERAPIST INFORMED THIS NURSE THAT PT WAS PALE, COOL, DIAPHORETIC, AND SHORT OF BREATH. HR WAS OBTAINED AND WAS IN 160'S. PT WAS IMMEDIATELY TAKEN BACK TO ROOM AND PLACED IN BED, RAPID RESPONSE CALLED. VITAL SIGNS OBTAINED AND HR IRREGULARLY IRREGULAR AT 142 APICALLY, SPO2 91%, BLOOD PRESSURE 139/89. PT PLACED ON 2L O2 VIA NC FOR COMFORT DUE TO CONTINUED REPORT OF SOB. RAPID RESPONSE ARRIVED AND EKG OBTAINED. CONTACTED PROVIDER AND OBTAINED ORDERS FOR CBC, BPM, TROPONIN AND CHEST X-RAY. ON REASSESSMENT OF PT PT CONTINUES TO DENY CHEST PAIN, HR 84, B/P 122/71, SPO2 96% ON 2L.
[2019-04-12 10:23] LABS: HEMATOCRIT 37.9 % (42.0-52.0); HEMOGLOBIN 12.3 gm/dL (14.0-18.0); MCH 29.1 pg (26.0-34.0); MCHC 32.5 g/dL (28.0-37.0); MCV 89.7 fL (80.0-100.0); RBC 4.23 mil/uL (4.50-6.00); RDW 15.8 % (10.5-14.5); WBC 5.2 thou/uL (4.0-11.0)
[2019-04-12 10:34] LABS: ANION GAP 7 mmol/L (7-16); BUN 17 mg/dL (7-18); CALCIUM 9.3 mg/dL (8.5-10.1); CHLORIDE 101 mmol/L (98-107); CO2 32 mmol/L (21-32); CREATININE 1.1 mg/dL (0.7-1.3); GLUCOSE 170 mg/dL (74-106); POTASSIUM 3.8 mmol/L (3.5-5.1); SODIUM 140 mmol/L (136-145)
[2019-04-12 10:42] LABS: TROPONIN-I <0.06 ng/mL (<0.06)
--- NOTE | 2019-04-12 19:03 | NUR ---
ASSUMED CARE OF PT AT 0715. PT IS A&OX4. THIS SHIFT PT HAVING HIGHLY VARIABLE HR RANGING BETWEEN 50S TO 170'S. RAPID RESPONSE CALLED (SEE NOT ABOVE). PT RESTED IN AFTERNOON AND HR STABALIZED BY EVEING AND SYMPTOMS RESOLVED. PT DENIED CHEST PAIN WITH NO CHANGES IN ORIENTATION. FAMILY AT BEDSIDE THIS EVENING. PT TURNED Q2H, LOW AIRLOSS MATTRESS IN PLACE AND BARRIER CREAM APPLIED TO SACRUM PER ORDERS. FALL PRECAUTIONS IN PLACE AND NURSING WILL CONTINUE TO MONITOR.
[2019-04-12 19:15] VITALS: BP 142/81
--- NOTE | 2019-04-12 21:48 | EKG ---
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: Binh WEINSTEIN : 1930 Requested By: Mickey Maldonado Order Number: [id number] MD: Rudi Bermudez Measurements Intervals [place] Rate: 87 P: [place]: QRS: -17 QRSD: 89 T: 61 QT: 392 QTc: 472 Interpretive Statements Atrial fibrillation Inferior infarct, old Compared to ECG 04/06/2019 14:58:08 No significant change was found Electronically Signed On 04-12-2019 21:47:43 SASH MAKER by Rudi Bermudez [email or web address] <ELECTRONICALLY SIGNED> By: Rudi Bermudez MD, [facility] 04/12/19 2147 8 8 Rudi Bermudez MD, [facility] /EPI
--- NOTE | 2019-04-13 02:41 | NUR ---
ASSUMED CARE AT APPROX 1900 EVENING 04/12. PT LYING IN BED WITH HEAD OF BED ELEVATED AT CHANGE OF SHIFT. PT WITH INCONTINENT STOOL AND ASSISTED WITH CHANGING. PT ALERT AND ORIENTED X4, APPROPRIATE AND COOPERATIVE. PT GIVEN HS MEDS WITH YOGURT WITH PT TOLERATING WELL. PT APPEARS TO BE SLEEPING SOUNDLY WITH HOURLY ROUNDING CHECKS. TURN Q2. BED ALARM ON AND CALL LIGHT IN REACH. WILL CONTINUE TO MONITOR.
[2019-04-13 09:01] VITALS: BP 123/73
--- NOTE | 2019-04-13 18:26 | NUR ---
ASSUMED CARE OF PT AT 0715. PT IS A&OX4 AND VITAL SIGNS ARE STABLE. DENIES PAIN AND PARTICIPATED IN SCHEDULED THERAPIES. BILIARY DRAIN TO RLQ DRAINING APPROPRIATLEY. 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 PER FAMILY, PT WOULD LIKE TO HAVE TOMATO SOUP AT ALL MEALS, ST NOTIFIED OF REQUEST DUE TO PT NECTAR THICK ORDERS, NO CHANGES AT THIS TIME. FALL PRECAUTIONS IN PLACE AND NURSING WILL CONTINUE TO MONITOR.
[2019-04-13 19:45] VITALS: BP 128/76
--- NOTE | 2019-04-14 03:36 | NUR ---
SMALL AMOUT LOOSE STOOL, PATIENT CLEANED AND RED AREA COVERED WITH MOISTURE BARRIER, OPEN AREA COVERED WITH Z-GUARD AND LEFT OPEN TO AIR. TURNED TO SIDE, PREFERS TO LIE ON HIS RIGHT SIDE WITH PILLOW UNDER LEFT ELBOW. MEDS WHOLE WITH YOGURT AND IS TAKING HIS WATER NECTAR-THICK.
[2019-04-14 08:43] VITALS: BP 119/67
--- NOTE | 2019-04-14 11:52 | NUR ---
ASSUMED CARE OF PT AT 0715. REPORTS SLEPT GOOD. PT IS A&OX4 AND VITAL SIGNS ARE STABLE. DENIES PAIN AND PARTICIPATED IN SCHEDULED THERAPIES. BILIARY DRAIN TO RLQ DRAINING APPROPRIATLEY. TURNED Q2H AND Z-GUARD APPLIED TO SACRUM AND LEFT EDWIN. PT HAD INCONT BM. HAD ONE LOOSE STOOL THIS AM BEGINNING OF THE SHIFT. ASSISTED WITH CLEANING. DR. HILL WAS HERE TO ROUND ON PT. OBTAINED ORDER TO CHANGE COLACE SCHEDULE TO PRN AND D/C ACHS SINCE PT DOES NOT HAS DM. CONTINUE TO BE ON NECTAR THICKENER. PT HAS BEEN UP TO DINNING ROOM FOR MEALS. HAS BRIGHT AFFECT AND HE SAID HE ENJOY THERAPY WITH NICE STAFF HERE. FALL PRECAUTIONS IN PLACE AND NURSING WILL CONTINUE TO MONITOR.
--- NOTE | 2019-04-14 18:37 | HC ---
[facility] [place] [address] CONSULTATION Name: PATRICIA VILLANUEVA Room #: 516-1 ADM IN M.R.#: [id number] Admission: 04/06/19 Attend Phys: Mickey Maldonado MD Discharge: Date of : [birth year] Report #: [id number] THIS REPORT FOR: //name// CC: Mickey Maldonado [facility] physician/PCP DATE OF SERVICE: 04/07/2019 HISTORY OF PRESENT ILLNESS: The patient is an 88-year-old male patient who is admitted to the rehab unit. He has had a prior cerebrovascular accident with left-sided hemiparesis, was noted to have a gluteal pressure ulcer and I have been asked to see him with regard to wound care. The patient denies any pain associated with this. He is cooperative and in good spirits. PAST MEDICAL HISTORY: Includes atrial fibrillation, chronic anticoagulation, prior cerebrovascular accident, left hemiparesis, hypertension, coronary artery disease. The patient has had recent atrial fibrillation with rapid ventricular response as well as acute cholecystitis. MEDICATIONS: Include acetaminophen, albuterol and ipratropium, amoxicillin and clavulanic acid, bisacodyl, docusate sodium, fluticasone, furosemide, lactobacillus, metoprolol, ondansetron, potassium chloride, Xarelto and sennosides. ALLERGIES: Include SHRIMP. SOCIAL HISTORY: Negative for current alcohol or tobacco use. REVIEW OF SYSTEMS: CONSTITUTIONAL: The patient denies fever, chills or weight loss. NEUROLOGICAL: The patient has left-sided hemiparalysis. ENT: The patient denies earache, nasal drainage or sore throat. CARDIOVASCULAR: The patient denies chest pain, palpitations or diaphoresis. PULMONARY: The patient denies cough or shortness of breath. GASTROINTESTINAL: The patient currently denies any nausea, vomiting, diarrhea or abdominal pain. ORTHOPEDIC: The patient denies pain or swelling of the extremities. Other systems in a 14-point review of systems are negative. PHYSICAL EXAMINATION: VITAL SIGNS: At this time include temperature 36.4, pulse 75, respiratory rate 20, blood pressure 145/76. GENERAL: This is a chronically ill-appearing male patient who appears to be in no distress. HEENT: Head normocephalic. Nose and throat are clear. NECK: Supple. [facility] [address] [place] [address] CONSULTATION Name: PATRICIA VILLANUEVA Room #: 516-1 ADM IN M.R.#: [id number] Admission: 04/06/19 Attend Phys: Mickey Maldonado MD Discharge: Date of : [birth year] Report #: [id number] LUNGS: Clear. ABDOMEN: Soft. Bowel sounds present. EXTREMITIES: Gluteal region demonstrates a stage 3 pressure ulceration to the buttocks bilaterally, more so on the right than on the left. These are relatively shallow. No exposure of deep structures and are not infected. CLINICAL IMPRESSION: 1. Stage 3 pressure ulcers, bilateral buttocks, right greater than left. 2. Left hemiparesis due to previous cerebrovascular accident. 3. Atrial fibrillation with rapid ventricular response. 4. Recent acute cholecystitis. RECOMMENDATIONS: At this point in time, recommend zinc oxide, moisture barrier cream b.i.d. low air loss mattress q.2 hour turning and positioning, aggressive nutritional support. Continue with PT and OT as tolerated. Continuation of current medications. I appreciate being asked to see him in consultation. <ELECTRONICALLY SIGNED> By: Hector Alvarado MD 04/14/19 1837 1723 01 Hector Alvarado MD /nt
[2019-04-14 19:50] VITALS: BP 136/71
--- NOTE | 2019-04-14 23:44 | NUR ---
PT ASSESSMENT DONE AND VSS. MEDS GIVEN AND WELL TOLERATED. FALL PRECAUTIONS IN PLACE. SLEEPING WELL. HOURLY ROUNDING. CALL LIGHT IN REACH. WILL CONTINUE TO MONITOR.
--- NOTE | 2019-04-15 06:46 | HC ---
[facility] [place] [address] CONSULTATION Name: PATRICIA VILLANUEVA Room #: 516-1 ADM IN M.R.#: [id number] Admission: 04/06/19 Attend Phys: Mickey Maldonado MD Discharge: Date of : [birth year] Report #: [id number] THIS REPORT FOR: //name// CC: Mickey Maldonado [facility] physician/PCP DATE OF SERVICE: 04/11/2019 Neurobehavioral status exam. ATTENDING PHYSICIAN: Mickey Maldonado MD. WELFARE SERVICE AIDE: Eder Green, PhD. CLINICAL PRESENTATION: The patient is an 88-year-old white male admitted to the rehabilitation unit at [facility] for comprehensive inpatient rehabilitation program to improve functional mobility, activities of daily living, self-care and mental status. He was initially admitted to the hospital on 03/30/2019 with nausea, vomiting and abdominal pain. A prior history of CVA with a left hemiparesis in February of 2019 when he was still living in [place] led to his move to the [place] area with plans to live with his daughter. His assessment on admission to the rehabilitation unit included medical complexity with generalized debility, left-sided hemiparesis, acute cholecystitis, status post cholecystectomy drain, atrial fibrillation with rapid ventricular response, now rate controlled, cough, coronary artery disease with prior stenting, history of diabetes mellitus with elevated blood sugar and a sacral pressure ulcer. A complete description of his medical condition and history along with medications can be found in his medical record. Neuropsychological consultation was requested to provide assistance in the assessment of cognitive and emotional status and to provide recommendations and services. Prior to this most recent medical event, he was living independently in his own home. 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 He completed a GED. There is no prior history of treatment for anxiety/depression or substance use disorder. The patient has three children. His family is very supportive. TECHNIQUES UTILIZED: Clinical interview, review of medical records, staff consultation and behavioral observation, mini mental status exam 2 standard version, verbal fluency assessment and family interview -- son and clock drawing. EXAMINATION FINDINGS: The patient was alert and cooperative with the [facility] [address] [place] [address] CONSULTATION Name: PATRICIA VILLANUEVA Room #: 516-1 [facility] IN M.R.#: [id number] Admission: 04/06/19 Attend Phys: Mickey Maldonado MD Discharge: Date of : [birth year] Report #: [id number] assessment. There is no evidence of aphasia. His thoughts are logical and goal oriented. There is no report of auditory or visual hallucinations. He describes his symptoms to include difficulty with memory, paralysis in his arm and leg, word finding, decreased appetite and anxiety. He does not report difficulty with sleep or feelings of depression. His performance on the MMSE 2 brief version is extremely low with a raw score of 11/16 and a T score of 23, which is less than the 1st percentile. He was 3/3 for initial registration, 4/5 for orientation to time, 3/[address] and 0/3 for immediate recall of 3 items after a brief time delay and distraction. His performance on the MMSE 2 standard version improved to a raw score of 22/30, which is a T score of 32 and percentile rank of 4. He was 3/5 for serial sevens, 2/2 for naming, 1/1 for repetition, 3/3 for auditory comprehension. He could read and follow single command and write a sentence. However, the patient was unable to accurately copy a simple geometric design. Clock drawing was satisfactory for hand placement, but decreased spatial construction is noted. Letter fluency was in the average range with a raw score of 16, T score of 45, percentile rank of 31. Category fluency was in the average range with a T score of 44 and percentile rank of 27. Overall, total fluency was low average with a T score of 42 and percentile rank of 21. The patient was 3/8 for a brief test of abstract reasoning suggesting impairment. The patient is presenting with decreased immediate recall, sustained concentration and visual spatial construction. Higher level executive dysfunction is also suggested. 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 Adjustment disorder with anxious mood, (primarily concerned about physical ability). RECOMMENDATIONS: Continued speech therapy to assist with the development of compensatory strategies, particular areas of immediate recall, attention/concentration and executive functioning. His family will need to continue to provide assistance in the management of medication and finances. A followup neuropsych assessment may be of benefit to clarify the severity of [address] [address] CONSULTATION Name: PATRICIA VILLANUEVA Room #: 516-1 ADM IN M.R.#: [id number] Admission: 04/06/19 Attend Phys: Mickey Maldonado MD Discharge: Date of : [birth year] Report #: [id number] cognitive functioning. However, he is likely show improvement in cognition with increased recovery time. Thank you very much for allowing me to provide the consultation on this patient. <ELECTRONICALLY SIGNED> By: Eder Green, PhD 04/15/19 0646 [id number] Eder Green, PhD /nt
[2019-04-15 07:27] VITALS: BP 131/71
--- NOTE | 2019-04-15 10:00 | NUR ---
ASSUMED CARE OF PT AT 0715. REPORTS SLEPT GOOD. HAD O2 AT 2L LAST NIGHT. SAT PT IS A&OX4 AND VITAL SIGNS ARE STABLE. SAT 95% ON RA. DENIES PAIN AND PARTICIPATED IN SCHEDULED THERAPIES. BILIARY DRAIN TO RLQ DRAINING APPROPRIATLEY. HAD 75CC GREEN LIQUID THIS AM. 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 GETTING BETTER. LAST BM WAS YESTERDAY. DR. HILL WAS HERE TO ROUND ON PT AND STOPPED ABT TODAY. PT UP TO DINNING ROOM ATE BREAKFAST. ST WORKED ON VITAL STIM. CONTINUE TO BE ON NECTAR THICKENER. ENCOURAGED PT TO BE UP TO DINNING ROOM FOR MEALS. FALL PRECAUTIONS IN PLACE AND NURSING WILL CONTINUE TO MONITOR.
[2019-04-15 11:09] VITALS: BP 135/69
--- NOTE | 2019-04-15 13:29 | NUR ---
team meeting, recommendation: dc 9th , skilled if family is unable to provide 24hr care at home with physical assistance (transfer, adls, meds and bills). on mech soft nectar thick liquids. cont estim and vital stim
[2019-04-15 19:58] VITALS: BP 123/67
--- NOTE | 2019-04-16 04:32 | NUR ---
PT ASSESSMENTS DONE AND VSS. MEDS GIVEN AND WELL TOLERATED. FALL PRECAUTIONS IN PLACE. SLEEPING WELL. HOURLY ROUNDING. CALL LIGHT IN REACH. WILL CONTINUE TO MONITOR.
[2019-04-16 05:39] LABS: HEMOGLOBIN 11.5 gm/dL (14.0-18.0); PLATELET COUNT 140 thou/uL (150-400); WBC 3.8 thou/uL (4.0-11.0)
[2019-04-16 05:41] LABS: HEMATOCRIT 34.5 % (42.0-52.0); MCH 29.2 pg (26.0-34.0); MCHC 33.3 g/dL (28.0-37.0); MCV 87.6 fL (80.0-100.0); RBC 3.94 mil/uL (4.50-6.00)
[2019-04-16 05:54] LABS: ALBUMIN 2.5 g/dL (3.4-5.0); CALCIUM 8.9 mg/dL (8.5-10.1); CREATININE 0.9 mg/dL (0.7-1.3); POTASSIUM 3.6 mmol/L (3.5-5.1); TOTAL BILIRUBIN 1.3 mg/dL (<0.1-1.0)
--- NOTE | 2019-04-16 07:06 | NUR ---
PATIENT IS CLEAR AND DIMINISHED TO AUSCULTATION, ROOM AIR SATS ARE 95% MORE OR LESS, CAN WE PLEASE CHANGE BREATHING TREATMENTS TO EITHER A Q6WA OR JUST PRN?
[2019-04-16 07:45] VITALS: BP 129/66
[2019-04-16 09:49] LABS: ABSOLUTE NEUTROPHILS 2.4 thou/uL (1.4-8.2); PLATELET ESTIMATE NORMAL
--- NOTE | 2019-04-16 10:00 | NUR ---
ASSUMED CARE OF PT AT 0715. REPORTS SLEPT GOOD. PT IS A&OX4 AND VITAL SIGNS ARE STABLE. DENIES PAIN AND PARTICIPATED IN SCHEDULED THERAPIES. BILIARY DRAIN TO RLQ DRAINING APPROPRIATLEY. TURNED Q2H AND Z-GUARD APPLIED TO SACRUM AND LEFT PLUCK TRIMMER. GETTING BETTER. PT UP TO DINNING ROOM ATE BREAKFAST. ST WORKED ON VITAL STIM. CONTINUE TO BE ON NECTAR THICKENER. ENCOURAGED PT TO BE UP TO DINNING ROOM FOR MEALS. FALL PRECAUTIONS IN PLACE AND NURSING WILL CONTINUE TO MONITOR.
--- NOTE | 2019-04-16 10:13 | NUR ---
DISCHARGE PLANNING. ANTICIPATED DISCHARGE PLANNED FOR 04/21 PER UNIT CM. POST ACUTE RECOMMENDED AT DISCHARGE. PATIENT REFERRAL FAXED TO [facility] PER REQUEST. CALL PLACED TO XOCHITL JUAREZ TO NOTIFY. VERIFIED REFERRAL RECEIVED. LARRY TO REVIEW AND NOTIFY CM. FOLLOWING.
--- NOTE | 2019-04-16 14:20 | NUR ---
Patient participated in community reintegration on 04/16/19 with Physical Therapy. Refer to documentation by PT.
[2019-04-16 19:30] VITALS: BP 98/60
--- NOTE | 2019-04-17 04:30 | NUR ---
PATIENT DOES NOT TOLERATE TURNS TO LEFT SIDE. TREATED WITH TURNS TO RIGHT SIDE, ZGUARD APPLIED TO BUTTOCKS AND LEFT OPEN TO AIR. MEDS GIVEN WHOLE WITH PUDDING AND HEAD OF BED UP TOWARDS 90 DEGREES. PLEASANT
--- NOTE | 2019-04-17 12:50 | NUR ---
ASSUMED CARE OF PT AT 0715. PT IS A&OX4, FORGETFUL. DENIES PAIN AND PARTICIPATED IN SCHEDULED THERAPIES. DURING OT PT HAD BRADYCARDIA EPISODE WHERE PULSE WAS IN 30'S. PT DIAPHORETIC, SOB, PALE, AND REPORTED DIZZINESS. PT ALLOWED TO REST IN W/C AND HR RECOVERED AND WAS IN 60'S. PT TURNED/REPOSITIONED EVERY 2 HOURS AND Z-GUARD APPLIED TO SACRUM. BILIARY DRAIN IN PLACE AND DRAINING SCANT AMOUNTS. FALL PRECAUTIONS IN PLACE AND NURSING WILL CONTINUE TO MONITOR.
--- NOTE | 2019-04-17 19:45 | NUR ---
PIVOT TRANSFER FROM W/C TO TOILET WITH GAIT BELT, BARS, AND ASSIST OF ONE. VOIDED AND ABLE TO WIPE HIMSELF BUT NO ACTUAL BM EXCEPT PERHAPS A SMEAR. ABLE TO PULL PANTS DOWN TO HIS KNEES AND BACK UP WHILE GAIT BELT HELD FOR SAFETY
[2019-04-17 20:11] VITALS: BP 132/70
--- NOTE | 2019-04-18 02:26 | NUR ---
PILLS WHOLE WITH PEACH YOGURT, TOLERATING NECTAR THICK WATER HOLDING CUP, TAKING SIPS, AND TUCKING CHIN. TURNED TO RIGHT SIDE FOR BUTTOCK PRESSURE RELIEF, Z-GUARD TO OPEN AREA AND MOISTURE BARRIER TO SURROUNDING AREA ESPECIALLY REDNESS AT EDGE OF RECTUM. PLEASANT AND IN GOOD SPIRITS
[2019-04-18 08:11] VITALS: BP 127/63
--- NOTE | 2019-04-18 13:37 | NUR ---
[facility] still waiting to see if cp will accept for snf. cp stated pt only has 5 skilled days left and then will be in his co-pay days. will cont following as needed for dc needs.
--- NOTE | 2019-04-18 15:33 | NUR ---
per bedside nurse, buttock right area [id number], topical tx ordered per md. cm called to [facility] and faxed. still waiting to see if the they have accepted for snf on
--- NOTE | 2019-04-18 15:33 | NUR ---
PT WOUND TO SACRUM NOT OPEN AT THIS TIME, MEASUREMENT 5CM X 6CM RED AREA, BLANCHABLE, Z-GUARD APPLIED TO THE AREA, PT TURNED TO RIGHT SIDE.
--- NOTE | 2019-04-18 16:25 | PLAN ---
[facility] [place] [address] [place] [address] REHAB UNIT PLAN OF CARE Name: PATRICIA VILLANUEVA Room #: 516-1 ADM IN M.R.#: [id number] Admission: 04/06/19 Attend Phys: Mickey Maldonado MD Discharge: Date of : [birth year] Report #: [id number] THIS REPORT FOR: //name// CC: Mickey Maldonado [facility] physician/PCP DATE OF SERVICE: 04/09/2019 PROGRESS NOTE/OVERALL PLAN OF CARE HISTORY: The patient is seen back today in followup. He was in no distress. He appears in better spirits, more animated. Temperature 36.4, pulse 85, respirations 18, blood pressure 133/65. He is working in therapies with transfers, max assist, bed to wheelchair. He is now ambulating 6 feet in the parallel bars with a front-wheeled walker and orthosis left AFO. In occupational therapy, he is mod assist upper body dressing, dependent lower body dressing. In speech therapy, he is on a nectar thickened liquid diet and has moderate cognitive deficits with severe memory deficits. No focal calf swelling. He is in no distress. ASSESSMENT: 1. Medical complexity with generalized debilitation. 2. Left-sided hemiparesis. 3. Dysphagia, on modified diet, nectar thick liquids. 4. Acute cholecystitis, status post cholecystectomy drain. 5. Atrial fibrillation with rapid ventricular rate. 6. Coronary artery disease with previous stenting. 7. History of diabetes mellitus. 8. Stage 3 gluteal pressure ulcer. 9. Memory/cognitive deficits. PLAN: The overall plan of care is based on the preadmission screen, post-admission physician evaluation and information garnered from therapy assessments. 1. Estimated length of stay is probably going to be at least 2-3 weeks pending progress. 2. Medical prognosis is reasonably good. 3. Anticipated interventions includes the interdisciplinary acute inpatient rehabilitation program. 4. Anticipated functional outcomes would be for the patient to become modified independent or at least to need minimal assistance with mobility and ADLs and to improve as far as swallowing. 5. Discharge destination is to go home with family. 6. Expected therapy by discipline includes PT, OT and speech 1 hour per day each five days a week throughout the duration of the acute inpatient rehabilitation stay. <ELECTRONICALLY SIGNED> By: Mickey Maldonado MD 04/18/19 1625 [id number] [id number] Mickey Maldonado MD /nt
--- NOTE | 2019-04-18 16:25 | H ---
[facility] [place] [address] HISTORY AND PHYSICAL Name: PATRICIA VILLANUEVA Room #: 516-1 ADM IN M.R.#: [id number] Admission: 04/06/19 Attend Phys: Mickey Maldonado MD Discharge: Date of : [birth year] Report #: [id number] THIS REPORT FOR: //name// CC: Mickey Maldonado [facility] physician/PCP DATE OF SERVICE: 04/06/2019 HISTORY AND PHYSICAL AND POST ADMISSION PHYSICIAN EVALUATION HISTORY OF PRESENT ILLNESS: The patient is an 88-year-old white male who was originally admitted on 03/30/2019 with nausea, vomiting, abdominal pain. He has a prior history of a recent CVA with left hemiparesis in February 2019 while living down in [place]. After improving as far as his overall function he was transferred via medical van to [place]. He was getting some skilled level therapies when he had the onset of nausea, vomiting, abdominal discomfort. He also went into atrial fibrillation with rapid ventricular rate. He was placed on Cardizem. Workup of his abdominal problems were consistent with acute cholecystitis and he ended up undergoing a cholecystostomy placement with surgery involved. He also has a cough with some early signs of fluid overload, which is being closely managed. He has the left-sided hemiparesis and has had a significant decline from his prior functional status. He has now been admitted for acute in-hospital inpatient rehabilitation. PAST MEDICAL HISTORY: Includes atrial fibrillation, on chronic anticoagulation, history of prior CVA with left hemiparesis, hypertension, coronary artery disease with right coronary artery stenting in 2010. ALLERGIES: SHRIMP. MEDICATIONS: Please see the full medication listing. SOCIAL HISTORY: As noted above. Plan is to stay with the daughter at the daughter's house here in the [place] area. He could stay on one floor. She works during the day. There is also a son. REVIEW OF SYSTEMS: No current complaints of chest pain, shortness of breath or abdominal discomfort. PHYSICAL EXAMINATION: GENERAL: This is an 88-year-old white male, in no obvious distress. VITAL SIGNS: Last recorded temperature 98, pulse 84, respirations 20, blood pressure 144/74. He is alert. HEENT: Facies appeared to be symmetric, except for a mild depressed left nasolabial fold. CHEST: Sounds clear except for some crackles at bases of both lung nevarez. [facility] [address] [place] [address] HISTORY AND PHYSICAL Name: PATRICIA VILLANUEVA Room #: 516-1 ADM IN M.R.#: [id number] Admission: 04/06/19 Attend Phys: Mickey Maldonado MD Discharge: Date of : [birth year] Report #: [id number] CARDIOVASCULAR: Regular rate and rhythm. ABDOMEN: Bowel sounds positive, nontender. GENITOURINARY AND RECTAL: Deferred. Abdominal drain being monitored. Nursing also is monitoring his buttocks with some redness and excoriation noted with turning q. 2 hours and low air loss pump. This is noted to be a stage 3 sacral pressure ulcer. EXTREMITIES: Functionally, the patient has a flaccid left upper extremity with just a trace elbow flexion. He has the isotonic glove in place. Tone is decreased. Left lower extremity has a little more movement with strength probably grade 3+/5. As far as the right upper and right lower extremity is more of a grade 4-/5. Functionally, he has been needing max assist of 2 to come into a standing position. Bed mobility has been max assist x 2. He has been on a nectar thickened liquid diet. No focal calf swelling or clinical evidence of a DVT. ASSESSMENT: An 88-year-old male with the following problem list: 1. Medical complexity with generalized debilitation. 2. Left-sided hemiparesis. 3. Acute cholecystitis, status post cholecystostomy drain. 4. Atrial fibrillation with rapid ventricular response, now rate controlled. 5. Cough. 6. Coronary artery disease with prior stenting. 7. History of diabetes mellitus with elevated blood sugar. 8. Sacral pressure ulcer. PLAN: The patient has been admitted for an acute in-hospital inpatient rehabilitation stay. From a postadmission physician evaluation perspective, there are no relevant changes since the preadmission screening. Please see the above review of prior and current medical and functional conditions and comorbidities. Please see the patient's previous and current functional status. As far as risk of complications, he does have the multiple medical comorbidities as noted above. Initial plan of care involves the interdisciplinary acute inpatient rehabilitation program. He has measurable functional goals to hopefully improve with basic bed mobility, transfers, and overall independence to at least at a basic wheelchair level. We will need to see how he progresses. Prognosis is reasonably good with estimated length of stay, likely fairly long probably at least 2-3 weeks. Potential barriers would include his multiple medical comorbidities and decreased functional status. The patient meets diagnostic criteria for an acute in-hospital inpatient rehabilitation stay. He meets the medical necessity criteria and we will have the corporate health consultant physicians continue to follow. He does have the tolerance for therapies and has appropriate discharge goals back to the home setting. He is on a low air loss mattress. quality assurance coordinator has been consulted. We will [address] [address] HISTORY AND PHYSICAL Name: PATRICIA VILLANUEVA Room #: 516-1 ADM IN M.R.#: [id number] Admission: 04/06/19 Attend Phys: Mickey Maldonado MD Discharge: Date of : [birth year] Report #: [id number] also ask the wound care physician to assist. He will continue in the rehabilitation therapy evaluations. <ELECTRONICALLY SIGNED> By: Mickey Maldonado MD 04/18/19 1625 0950 1059 Mickey Maldonado MD /[facility]
[2019-04-18 19:44] VITALS: BP 134/78
--- NOTE | 2019-04-18 19:50 | NUR ---
ASSUMED CARE OF PT AT 0715. PT IS A&OX4 AND VITAL SIGNS ARE STABLE. DENIES PAIN AND PARTICIPATED IN SCHEDULED THERAPIES. REQUIRES 2 PERSON ASSISTANCE TO TRANSFER OFF OF TOILET DUE TO HEIGHT OF TOILET SEAT. NECTAR THICK LIQUIDS AND MECHANICAL ALTERED GROUND DIET CONTINUED, NURSING ENCOURAGING SAFE SWALLOW STRATAGIES. MEDICAITONS WHOLE IN PUDDING. TURNED Q2H WITH Z-GUARD APPLIED TO SACRUM PER ORDERS. SACRUM WOUND W/O NOTED OPEN AREAS. AIR BED IN PLACE. SWISH AND SPIT FOR ORAL THRUSH CONTINUED. BILIARY TUBE IN PLACE AND DRAINED 150ML OF DARK DRAINAGE. CALLS APPROPRIATELY FOR ASSISTANCE, FALL PRECAUTIONS IN PLACE AND NURSING WILL CONTINUE TO MONITOR.
--- NOTE | 2019-04-19 00:41 | NUR ---
PT ASSESSMENT DONE AND VSS. MEDS GIVEN AND WELL TOLERATED. FALL PRECAUTIONS IN PLACE. HOURLY ROUNDING. CALL LIGHT IN REACH. SLEEPING WELL. WILL CONTINUE TO MONITOR.
[2019-04-19 10:28] VITALS: BP 129/74
--- NOTE | 2019-04-19 17:40 | NUR ---
ASSUMED CARE OF PT AT 0715. PT IS AQ&OX4 AND VITAL SIGNS ARE STABLE. PT DENIES PAIN AND PARTICIPATED IN SCHEDULED THERAPIES. TURNED Q2H, LOW AIRLOSS MATTRESS IN PLACE, Z-GUARD APPLIED PER ORDERS. SACRUM WOUND NOT OPEN AT THIS TIME. SWISH AND SPIT FOR ORAL THRUSH. INCONTINENT OF BOWL X2, BOWEL MOVEMENT LOOSE FORMED. BILIARY BAG IN PLACE AND DRAINING APPROPRIATELY. CALLS FOR ASSISTANCE APPROPRIATELY. FALL PRECAUTIONS IN PLACE AND NURSING WILL CONTINUE TO MONITOR.
[2019-04-19 20:48] VITALS: BP 119/63
[2019-04-20 05:57] LABS: ABSOLUTE NEUTROPHILS 1.5 thou/uL (1.4-8.2); BASOPHILS 0.6 % (0.0-2.0); EOSINOPHILS 3.6 % (0.0-3.0); HEMATOCRIT 34.1 % (42.0-52.0); LYMPHOCYTES 35.3 % (24.0-44.0); MCH 28.6 pg (26.0-34.0); MCHC 32.2 g/dL (28.0-37.0); MCV 88.8 fL (80.0-100.0); MONOCYTES 11.7 % (1.0-8.0); POLYS 48.8 % (36.0-66.0); RBC 3.84 mil/uL (4.50-6.00); RDW 16.4 % (10.5-14.5)
--- NOTE | 2019-04-20 06:00 | NUR ---
PT ASSESSMENT COMPLETED AND VSS. MEDS GIVEN ORDERED AND WELL TOLERATED. FALL PRECAUTIONS IN PLACE. VOIDING MODERATE AMOUNT PER URINAL. TURNED FREQUENTLY AND APPLIED ZGUARD TO COCCYX WOUND. SLEEPING WELL. WILL CONTINUE TO MONITOR FREQUENTLY.
[2019-04-20 06:05] LABS: POTASSIUM 3.5 mmol/L (3.5-5.1)
[2019-04-20 06:36] LABS: PLATELET COUNT 99 thou/uL (150-400)
[2019-04-20 07:30] VITALS: BP 107/58
--- NOTE | 2019-04-20 16:33 | NUR ---
ASSUMED CARE OF PT AT 0715. PT IS A&OX4 AND VITAL SIGNS ARE STABLE. DENIES PAIN. UP TO DINING ROOM FOR ALL MEALS. TURNED Q2H, BARRIER CREAM APPLIED TO SACRUM, AND LOW AIRLOSS MATTRESS IN PLACE. DAUGHTER REMOVED SOME BELONGINGS FROM PT ROOM DUE TO PLANS FOR DISCHARGE TOMORROW. MEDICATIONS IN WHOLE IN PUDDING. FALL PRECAUTIONS IN PLACE AND NURSING WILL CONTINUE TO MONITOR.
[2019-04-20 19:42] VITALS: BP 115/64
--- NOTE | 2019-04-20 23:56 | NUR ---
PT ASSESSMENT DONE AND VSS. MEDS GIVEN AND WELL TOLERATED. FALL PRECAUTINS IN PLACE. SLEEPING WELL. HOURLY ROUNDING. CALL LIGHT IN REACH. WILL CONTINUE TO MONITOR.
[2019-04-21] MEDS ORDERED: IPRAT-ALBUT 0.5-3 ML INH (07:29)
[2019-04-21] MEDS ORDERED: NYSTATIN100000 UNI SWISH&SPIT (07:29)
[2019-04-21 08:15] VITALS: BP 133/85
--- NOTE | 2019-04-21 12:06 | NUR ---
[id number] placed in pt chart copy to go with him to skilled at [facility]. cm notify bedside nurse transport time 1330 and pt daughter viktoriya notified as well.
--- NOTE | 2019-04-21 12:10 | NUR ---
PT ALERT AND ORIENTED TIMES FOUR. VSS, 97%RA. PT DENIES PAIN/SOA. PT TOLERATES MEDS AND MEALS. PT WORKED WELL WITH PT/OT. PLANS FOR DISCHARGE TODAY. WILL CONTINUE TO MONITOR.
== END 2019-04-21 13:43 | DRG 947 ==
PROVIDERS: Internal Medicine; Nurse Practitioner Family; ADMIT Physical Medicine & Rehabilitation
DX: R53.81 Other malaise (principal); L89.153 Pressure ulcer of sacral region, stage 3; I50.30 Unspecified diastolic (congestive) heart failure; I69.354 Hemiplegia and hemiparesis following cerebral infarction affecting left non-dominant side; K81.0 Acute cholecystitis; I48.20 Chronic atrial fibrillation, unspecified; I48.91 Unspecified atrial fibrillation; D69.6 Thrombocytopenia, unspecified; I25.10 Atherosclerotic heart disease of native coronary artery without angina pectoris; R13.10 Dysphagia, unspecified; I11.0 Hypertensive heart disease with heart failure; R00.1 Bradycardia, unspecified; R19.7 Diarrhea, unspecified; R05 Cough; G31.84 Mild cognitive impairment of uncertain or unknown etiology; F43.22 Adjustment disorder with anxiety; E11.9 Type 2 diabetes mellitus without complications; Z79.899 Other long term (current) drug therapy; Z79.51 Long term (current) use of inhaled steroids; Z79.2 Long term (current) use of antibiotics; Z79.01 Long term (current) use of anticoagulants; Z95.5 Presence of coronary angioplasty implant and graft; Z90.49 Acquired absence of other specified parts of digestive tract; Z91.013 Allergy to seafood
CPT/HCPCS: 10112

== ENCOUNTER 2019-05-02 18:19 | Inpatient (IN) | payer OTHER ==
[~2019-05-02] VITALS: Ht 185.4 cm; Wt 109.3 kg
[~2019-05-02 18:19] MED LIST changes: +AUGMENTIN 875-1 EACH PO; +IPRAT-ALBUT 0.5-3 ML INH; +K-DUR 20 MEQ T20 MEQ PO; +LOPRESSOR25 PO; +MUCINEX600 MG PO; +NYSTATIN100000 UNI SWISH&SPIT; +ONDANSETRON HCL4 M1 IV PUSH; +TYLENOL325 MG PO
[2019-05-02 18:21] VITALS: BP 126/60
[2019-05-02] MEDS ORDERED: MULTIVITAMINS1 EAC7 PO (18:27)
[2019-05-02] MEDS ORDERED: POTASSIUM20 PO (18:28)
[2019-05-02] MEDS ORDERED: BENADRYL25 MG PO (18:28)
[2019-05-02] MEDS ORDERED: VITAMIN C500 M2 PO (18:28)
[2019-05-02 18:56] LABS: HEMOGLOBIN 13.5 gm/dL (14.0-18.0); MCHC 32.8 g/dL (28.0-37.0); MCV 88.3 fL (80.0-100.0); RBC 4.64 mil/uL (4.50-6.00); RDW 16.8 % (10.5-14.5); WBC 8.4 thou/uL (4.0-11.0)
[2019-05-02 19:07] LABS: CALCIUM 9.3 mg/dL (8.5-10.1); CREATININE 1.2 mg/dL (0.7-1.3)
[2019-05-02 19:12] LABS: ALBUMIN 2.9 g/dL (3.4-5.0); TOTAL BILIRUBIN 1.1 mg/dL (<0.1-1.0); TOTAL PROTEIN 6.8 g/dL (6.4-8.2)
[2019-05-02 19:18] LABS: ABSOLUTE NEUTROPHILS 4.3 thou/uL (1.4-8.2); ANISOCYTOSIS 1+; PLATELET COUNT 121 thou/uL (150-400)
[2019-05-02 21:24] LABS: URINE BILIRUBIN NEGATIVE (Negative); URINE BLOOD 2+ (Negative); URINE CLARITY CLEAR; URINE COLOR YELLOW; URINE GLUCOSE-RANDOM* NEGATIVE (Negative); URINE KETONES TRACE (Negative); URINE LEUKOCYTES-REFLEX TRACE (Negative); URINE NITRITE-REFLEX NEGATIVE (Negative); URINE PROTEIN (DIPSTICK) NEGATIVE (Negative); URINE SPECIFIC GRAVITY 1.025 (1.005-1.035); URINE UROBILINOGEN 0.2 E.U./dl (0.2-1.0)
[2019-05-02 21:41] LABS: BACTERIA-REFLEX 1-9 Few /HPF (None Seen); CALCIUM OXALATE 0-3 Few /LPF (None Seen); CASTS None Seen /LPF (None Seen); CRYSTALS None Seen /LPF (None Seen); SQUAMOUS None Seen /LPF (0-3); URINE WBC-REFLEX 0-5 Rare /HPF (0-5)
[2019-05-02 22:09] VITALS: BP 108/56
[2019-05-02 22:24] VITALS: BP 108/56
[2019-05-02 22:44] VITALS: BP 114/71
[2019-05-03 04:28] VITALS: BP 128/60
[2019-05-03 07:31] VITALS: BP 117/56
--- NOTE | 2019-05-03 07:45 | NUR ---
patient is alert and oriented. patient is bedrest q2turn. patient has drain to RUQ. patient is npo. patient has left arm weakness from old cva. patient is mech soft with nectar thick liquids at facility. patient had barrier cream applied to coccyx. patient is resting comfortably in bed. wcm. patient is progressing to goals.
--- NOTE | 2019-05-03 14:23 | NUR ---
A&OX4, VSS, PAIN RUQ. BILI DRAIN FLUSHED WITH 10ML OF NS AND IS PATENT. PATIENT MOVED FROM NPO TODAY AND IS TOLERATING DIET. BILI CHOLANGIOGRAM RESCHEDULED FOR SUNDAY. PATIENT AND FAMILY AWARE. NO SIGNS OF DISTRESS. WILL CONTINUE TO MONITOR.
[2019-05-03 15:27] VITALS: BP 112/58
[2019-05-03 19:38] VITALS: BP 104/62
--- NOTE | 2019-05-04 04:05 | NUR ---
Patient making slow progress towards outcome goals. Abdominal pain better with biliary drain draining. Vital signs and rhythm stable. High fall risks, fall precautions in place. IVfluids infusing. Generalized itchy rashes treated with Benadryl with some relief.
[2019-05-04 04:14] VITALS: BP 101/61
[2019-05-04 07:25] VITALS: BP 100/48
--- NOTE | 2019-05-04 08:21 | H ---
[facility] [place] [address] [place] [address] HISTORY AND PHYSICAL Name: PATRICIA VILLANUEVA Room #: 361-P ADM IN M.R.#: [id number] Admission: 05/02/19 Attend Phys: Iraj De Leon MD Discharge: Date of : [birth year] Report #: [id number] THIS REPORT FOR: //name// CC: Iraj Mackh Radha DATE OF SERVICE: 05/03/2019 HISTORY OF PRESENT ILLNESS: The patient is an 88-year-old male who was [facility] with a complaint of increasing right upper quadrant pain. The patient indicated that he has also some rash, he wants to be evaluated. The patient indicated that he did not have any nausea or vomiting. He does not have any changes in his bowels. He does not have any fever or chills. The patient had a very prolonged course of hospitalization during last month with cholecystitis that was treated with cholecystostomy tube. The patient was on prolonged course of antibiotics that he finished and he went continued inpatient rehab and after that, [facility]. The patient indicated that his drain was stopped working for a couple of days, but now it is working. The patient denies any fever. PAST MEDICAL HISTORY: Significant for hypertension, atrial fibrillation, previous stroke in February of this year with left side weakness. The patient had a history of Elizondo's palsy, benign prostatic hypertrophy, thrombocytopenia, appendectomy, previous history of back surgery and bilateral knee replacements. MEDICATIONS: The patient's medications were reviewed. ALLERGIES: SHELLFISH and SHRIMP. SOCIAL HISTORY: The patient denies any recent history of smoking, alcohol use or drug use. FAMILY HISTORY: Noncontributory. REVIEW OF SYSTEMS: Negative besides what was mentioned above. PHYSICAL EXAMINATION: VITAL SIGNS: On arrival to the hospital showed temperature of 36.4, pulse 79, respiration 17, blood pressure 126/60 and last blood pressure is 117/56. HEAD AND NECK: Head and neck exam did not show any drainage from the ears or nose. The patient does not have any signs of jaundice by evaluating the sclerae. The patient's mucous membranes were normal. Neck was supple. LUNGS: Clear to auscultation. CARDIAC: S1 and S2. ABDOMEN: Abdomen shows some tenderness on the right upper quadrant area. [address] [address] HISTORY AND PHYSICAL Name: PATRICIA VILLANUEVA Room #: 361-P [facility] IN M.R.#: [id number] Admission: 05/02/19 Attend Phys: Iraj De Leon MD Discharge: Date of : [birth year] Report #: [id number] rebound tenderness, no rigidity. Bowel sounds were positive. EXTREMITIES: Without any edema. NEUROLOGIC: The patient has the weakness on the left side of his body, but he is able to move his arm and leg. LABORATORY DATA: The patient's lab showed white count of 8.4, hemoglobin 13.5, hematocrit 41.0 and platelet count 121. Neutrophils are 50% with 1% bands. The patient's chemistry showed sodium of 138, potassium 4, chloride 101, bicarbonate 33, anion gap 4, BUN 27, creatinine 1.2, glucose 112, total bilirubin 1.1, alkaline phosphatase 164, albumin 2.9. Lipase 131. Urine showed trace ketones, +2 blood in the urine, white blood cells are 0-5. Blood culture results are still pending. CT of the abdomen and pelvis showed there is irregular opacity in the right lower lobe, which probably related to pneumonitis rather than developing mass and cholecystitis has progressed despite the presence of cholecystostomy tube. 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 ASSESSMENT AND PLAN: 1. Cholecystitis, status post cholecystostomy tube placement. 2. Right lower lobe lung infiltrate. 3. Atrial fibrillation. 4. Hypertension. 5. Previous history of cerebrovascular accident with left hemiparesis. 6. Diastolic congestive heart failure. The patient will be admitted to the hospital with the above-mentioned diagnoses. The patient to start on Zosyn for treatment of intra-abdominal abscess and also for the treatment of any possibility of pneumonia. The patient to start his bronchodilators. I will hold the Xarelto per Surgery recommendation for 24 hours until we figure out what is going on with the patient, but I will resume the patient's home medications. The patient to have repeated the chest x-ray in the morning and repeated the blood tests in the morning. Surgery has been consulted and evaluated the patient already and orders were put. <ELECTRONICALLY SIGNED> By: Zaira Choi MD 05/04/19 0821 0829 [id number] Zaira Choi MD /nt
[2019-05-04 10:00] VITALS: BP 138/68
[2019-05-04 15:21] VITALS: BP 110/70
--- NOTE | 2019-05-04 17:49 | NUR ---
PT is A&OX3, PT is continuing iv fluid and iv abx, pt's vs are stable, pt's R side billary tube has small drinage coming, pt will go IR for cholecystostomy drain evalution tomorrow, NPO after MN, pt's family stay at pt's bedside, RN has updated pt's information,pt denies pain and n/v by this time.
[2019-05-04 20:03] VITALS: BP 116/56
--- NOTE | 2019-05-05 03:15 | NUR ---
Patient making progress towards outcome goals. Vital signs and rhythm Stable. Denies pain. IVfluids infusing. NPO after MN. IR to evaluate biliary drain. Draning green liquid. Turned to sides. High fall risk, fall precautions in place.
[2019-05-05 04:23] VITALS: BP 114/46
[2019-05-05 04:24] VITALS: BP 114/46
[2019-05-05 05:48] LABS: ABSOLUTE NEUTROPHILS 2.3 thou/uL (1.4-8.2); BASOPHILS 0.4 % (0.0-2.0); HEMATOCRIT 34.5 % (42.0-52.0); LYMPHOCYTES 23.7 % (24.0-44.0); MCH 28.7 pg (26.0-34.0); MCHC 32.4 g/dL (28.0-37.0); MCV 88.7 fL (80.0-100.0); MONOCYTES 9.7 % (1.0-8.0); PLATELET COUNT 86 thou/uL (150-400); POLYS 60.2 % (36.0-66.0); RBC 3.89 mil/uL (4.50-6.00); RDW 16.5 % (10.5-14.5); WBC 3.8 thou/uL (4.0-11.0)
[2019-05-05 05:49] LABS: HEMOGLOBIN 11.2 gm/dL (14.0-18.0)
[2019-05-05 06:04] LABS: ALBUMIN 2.2 g/dL (3.4-5.0); CALCIUM 8.2 mg/dL (8.5-10.1); CREATININE 1.1 mg/dL (0.7-1.3); POTASSIUM 3.8 mmol/L (3.5-5.1); TOTAL BILIRUBIN 0.9 mg/dL (<0.1-1.0); TOTAL PROTEIN 5.5 g/dL (6.4-8.2)
--- NOTE | 2019-05-05 09:25 | NUR ---
WOUND CARE CONSULT pressure injury stage 2 right buttock, pt known to wound team from previous admission, wound healing, daughter at bs, pt alert & cooperative, on low air loss mattress, encouraged to turn q2 hours and off load/pressure relief RECOMMENDATIONS; ZGUARD TO WOUND BID AND PRN, KEEP OFF WOUND MUCH POSSIBLE, TURN Q2 HOURS, CONT W/ LOW AIR LOSS PUMP TO BED, OPTICAL FABRICATION TECHNICIAN INFORMED
[2019-05-05 10:18] VITALS: BP 144/77
--- NOTE | 2019-05-05 14:20 | NUR ---
DISCHARGE PLANNING. ANTICIPATED DISCHARGE PLANNED FOR TOMORROW. PATIENT ADMITTED FROM [facility]. PLAN IS FOR PATIENT TO DISCHARGE BACK TO [facility] ONCE MEDICALLY READY. CLINICAL INFORMATION FAXED TO [facility]. CALL PLACED TO LARRY TO NOTIFY. FOLLOWING.
--- NOTE | 2019-05-05 15:29 | NUR ---
RD consult received for pt with poor appetite due to cholecystitis. S/P percutaneous cholecystostomy tube. Also has stage II pressure ulcer to right buttock followed by wound care. Pt able to voice food preferences, likes Ensure. Intake has been improving as pt has had extended hospital admissions. Eating 50-100%. + wt loss 12 lb wt loss x 2 mo/5%. Pending discharge tomorrow. Took order for breakfast. Will assess further on 05/08 if pt does not discharge.
[2019-05-05 15:40] VITALS: BP 115/72
--- NOTE | 2019-05-05 15:54 | NUR ---
INITIAL ASSESSMENT: Received consult. BRIDGER reviewed chart and spoke with nursing. Pt was admitted from [facility] due to choleycystitis. Pt is progressing towards goals for discharge. BRIDGER met with pt at bedside. Introduced role of SW. Pt is alert/orientated. Pt had a CVA in February. Pt has been to [facility] and then was on 09/19. Pt discharged to [facility] on 04/21. Pt requested SW contact his dtr, Giselle, to confirm plan to return to [facility]. planner/scheduler to fax clinical/therapy info to [facility] for review. BRIDGER left voice message for pt's dtr. Received voice message stating that pt is okay with returning to [facility], even though that is not her choice. BRIDGER is following to assist as needed with discharge planning.
--- NOTE | 2019-05-05 15:59 | EKG ---
[address] [address] ELECTROCARDIOGRAM REPORT Name: PATRICIA VILLANUEVA Room #: 361-P ADM IN M.R.#: [id number] Admission: 05/02/19 Attend Phys: Iraj De Leon MD Discharge: Date of : [birth year] Report #: [id number] THIS REPORT FOR: //name// [facility] ED Test Date: 2019-05-02 Test Time: 18:47:44 Pat Name: PATRICIA VILLANUEVA Department: Room: 361 Gender: M Vocational Adviser: ROQUE : 1930 Requested By: Sruthi Landrum Order Number: [id number] MD: Carlo Coffman Measurements Intervals [place] Rate: 80 P: [place]: QRS: -1 QRSD: 94 T: 18 QT: 410 QTc: 473 Interpretive Statements Atrial fibrillation Borderline low voltage, extremity leads Probable anteroseptal infarct, old Compared to ECG 04/12/2019 09:39:59 No significant changes Electronically Signed On 05-05-2019 15:59:11 HARNESS INSTALLER by Carlo Coffman [email or web address] <ELECTRONICALLY SIGNED> By: Carlo Coffman MD 05/05/19 1559 1847 184 Carlo Coffman MD /RAQUEL
--- NOTE | 2019-05-05 18:00 | NUR ---
pt is A&OX3, PTis continuing iv abx and iv fluid, pt has done cholecystomy drain evaluation, results show correct position and working well, pt's vs are stable, pt's family stay at pt's bedside, pt denies pain and n/v at this time.
[2019-05-05 19:30] VITALS: BP 132/68
[2019-05-06 04:10] VITALS: BP 113/68
[2019-05-06] MEDS ORDERED: TRIAMCINOLONE A15 G3 TOP (07:00)
[2019-05-06] MEDS ORDERED: AUGMENTIN 500-1 EACH PO (07:00)
[2019-05-06] MEDS ORDERED: PREDNISONE 10 M10 MG PO (07:00)
[2019-05-06 07:30] LABS: ABSOLUTE NEUTROPHILS 2.2 thou/uL (1.4-8.2); BASOPHILS 0.3 % (0.0-2.0); EOSINOPHILS 9.5 % (0.0-3.0); HEMATOCRIT 35.7 % (42.0-52.0); HEMOGLOBIN 11.5 gm/dL (14.0-18.0); LYMPHOCYTES 27.9 % (24.0-44.0); MCH 28.7 pg (26.0-34.0); MCHC 32.2 g/dL (28.0-37.0); MCV 88.9 fL (80.0-100.0); MONOCYTES 8.8 % (1.0-8.0); PLATELET COUNT 91 thou/uL (150-400); POLYS 53.5 % (36.0-66.0); RBC 4.02 mil/uL (4.50-6.00); RDW 16.6 % (10.5-14.5); WBC 4.1 thou/uL (4.0-11.0)
[2019-05-06 07:57] LABS: ALBUMIN 2.4 g/dL (3.4-5.0); CALCIUM 8.8 mg/dL (8.5-10.1); TOTAL BILIRUBIN 0.8 mg/dL (<0.1-1.0); TOTAL PROTEIN 5.7 g/dL (6.4-8.2)
[2019-05-06 07:58] VITALS: BP 138/68
--- NOTE | 2019-05-06 10:24 | NUR ---
ASSUMED CARE OF PT AT 0700. PT ALERT AND ORIENTED X4 IN NO ACUTE DISTRESS. DENIES PAIN. VOICING NO COMPLAINTS. VITALS STABLE. ANTICIPATE D/C TO [facility] AT 1030. NOTIFIED DAUGHTER BY PHONE - NOW AT BEDSIDE. WAITING ON TRANSPORT.
--- NOTE | 2019-05-06 13:26 | NUR ---
DISCHARGE NOTE: SW reviewed chart and spoke with nursing. Pt with discharge orders to return to [facility] today. SW had met with pt and dtr, Giselle, last evening to confirm discharge plan. Pt's dtr reviewed alternate SNF options. Pt states he wanted to return to [facility]. Pt's dtr agreeable. digital sales planner coordinated discharge plan and notified pt's dtr. Chart copied. Nursing called report. No additional SW needs identified at this time, but is available to assist should needs arise.
--- NOTE | 2019-05-06 15:39 | NUR ---
PATIENT DISCHARGED BEFORE O.T. EVALUATION WAS COMPLETED.
== END 2019-05-06 10:55 | DRG 445 ==
LOC: ER 18:19 → 3W 21:00 → EROBS 21:00 → 3W 22:31
PROVIDERS: Emergency Medicine; Internal Medicine; Nurse Practitioner Family; ADMIT Surgery
PROC: BF141ZZ Fluoroscopy of Gallbladder, Bile Ducts and Pancreatic Ducts using Low Osmolar Contrast (ICD-10-PCS; principal; 2019-05-05)
DX: K81.9 Cholecystitis, unspecified (principal); I50.32 Chronic diastolic (congestive) heart failure; I69.954 Hemiplegia and hemiparesis following unspecified cerebrovascular disease affecting left non-dominant side; R91.8 Other nonspecific abnormal finding of lung field; I48.91 Unspecified atrial fibrillation; I25.10 Atherosclerotic heart disease of native coronary artery without angina pectoris; R21 Rash and other nonspecific skin eruption; I11.0 Hypertensive heart disease with heart failure; G51.0 Bell's palsy; Z96.653 Presence of artificial knee joint, bilateral; R68.81 Early satiety; N40.0 Benign prostatic hyperplasia without lower urinary tract symptoms; Z79.899 Other long term (current) drug therapy; Z91.013 Allergy to seafood; Z95.5 Presence of coronary angioplasty implant and graft; Z93.4 Other artificial openings of gastrointestinal tract status; Z90.49 Acquired absence of other specified parts of digestive tract
CPT/HCPCS: 10879

== ENCOUNTER 2019-05-16 11:04 | Emergency (ER) | payer OTHER ==
[~2019-05-16] VITALS: Ht 185.4 cm; Wt 108.9 kg
[~2019-05-16 11:04] MED LIST changes: +AUGMENTIN 500-1 EACH PO; +BENADRYL25 MG PO; +MULTIVITAMINS1 EAC7 PO; +POTASSIUM20 PO; +PREDNISONE 10 M10 MG PO; +TRIAMCINOLONE A15 G3 TOP; +VITAMIN C500 M2 PO
[2019-05-16 11:56] LABS: ABSOLUTE NEUTROPHILS 6.5 thou/uL (1.4-8.2); BASOPHILS 0.5 % (0.0-2.0); EOSINOPHILS 0.8 % (0.0-3.0); HEMATOCRIT 41.5 % (42.0-52.0); HEMOGLOBIN 13.4 gm/dL (14.0-18.0); LYMPHOCYTES 12.1 % (24.0-44.0); MCH 28.8 pg (26.0-34.0); MCHC 32.4 g/dL (28.0-37.0); MONOCYTES 7.4 % (1.0-8.0); PLATELET COUNT 104 thou/uL (150-400); POLYS 79.2 % (36.0-66.0); RBC 4.66 mil/uL (4.50-6.00); RDW 16.9 % (10.5-14.5); WBC 8.2 thou/uL (4.0-11.0)
[2019-05-16 12:06] LABS: ANION GAP 7 mmol/L (7-16); BUN 20 mg/dL (7-18); CALCIUM 9.6 mg/dL (8.5-10.1); CHLORIDE 101 mmol/L (98-107); CO2 29 mmol/L (21-32); CREATININE 1.1 mg/dL (0.7-1.3); GLUCOSE 156 mg/dL (74-106); SODIUM 137 mmol/L (136-145)
[2019-05-16 12:16] LABS: LIPASE 60 U/L (73-393); SGOT 32 U/L (15-37); SGPT 40 U/L (30-65); TOTAL BILIRUBIN 2.1 mg/dL (<0.1-1.0); TOTAL PROTEIN 6.9 g/dL (6.4-8.2); TROPONIN-I <0.06 ng/mL (<0.06)
--- NOTE | 2019-05-16 13:53 | EKG ---
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: : 1930 Requested By: Gabriel Centeno Order Number: [id number] MD: Rudi Bermudez Measurements Intervals [place] Rate: 78 P: [place]: QRS: 2 QRSD: 91 T: 35 QT: 408 QTc: 465 Interpretive Statements Atrial fibrillation Low voltage, extremity leads Compared to ECG 05/02/2019 18:47:44 No significant change was found Electronically Signed On 05-16-2019 13:52:46 BESSEMER CONVERTER BLOWER by Rudi Bermudez [email or web address] <ELECTRONICALLY SIGNED> By: Rudi Bermudez MD, [facility] 05/16/19 1352 1125 1125 Rudi Bermudez MD, FACC /EPI
[2019-05-16 13:59] LABS: URINE BILIRUBIN NEGATIVE (Negative); URINE BLOOD 1+ (Negative); URINE CLARITY CLEAR; URINE COLOR YELLOW; URINE GLUCOSE-RANDOM* NEGATIVE (Negative); URINE KETONES NEGATIVE (Negative); URINE LEUKOCYTES-REFLEX NEGATIVE (Negative); URINE NITRITE-REFLEX NEGATIVE (Negative); URINE PROTEIN (DIPSTICK) NEGATIVE (Negative); URINE SPECIFIC GRAVITY <= 1.005 (1.005-1.035); URINE UROBILINOGEN 0.2 E.U./dl (0.2-1.0)
[2019-05-16 14:10] LABS: BACTERIA-REFLEX 1-9 Few /HPF (None Seen); CASTS None Seen /LPF (None Seen); CRYSTALS None Seen /LPF (None Seen); SQUAMOUS None Seen /LPF (0-3); URINE RBC 3-10 Few /HPF (0-2); URINE WBC-REFLEX 0-5 Rare /HPF (0-5)
[2019-05-16 15:04] VITALS: BP 101/53
--- NOTE | 2019-05-17 11:50 | EKG ---
[facility] [address] ELECTROCARDIOGRAM REPORT Name: PATRICIA VILLANUEVA Room #: DEP MALLORIE Flowers#: [id number] Admission: 05/16/19 Attend Phys: Discharge: 05/16/19 Date of : [birth year] Report #: [id number] THIS REPORT FOR: //name// [facility] ED Test Date: 2019-05-16 Test Time: 13:35:19 Pat Name: PATRICIA VILLANUEVA Department: Room: Gender: M Legal Support Manager: : 1930 Requested By: Gabriel Centeno Order Number: [id number] MD: Rudi Bermudez Measurements Intervals [place] Rate: 69 P: MD: QRS: -2 QRSD: 89 T: 34 QT: 427 QTc: 458 Interpretive Statements Atrial fibrillation Low voltage, extremity leads Anteroseptal infarct, old Compared to ECG 05/16/2019 11:25:24 Septal Q waves are more prominent Electronically Signed On 05-17-2019 11:50:06 PMO ANALYST by Rudi Bermudez [email or web address] <ELECTRONICALLY SIGNED> By: Rudi Bermudez MD, [facility] 05/17/19 1150 1335 34 Rudi Bermudez MD, FACC /EPI
== END 2019-05-16 15:04 | disposition home or self-care (01) ==
LOC: ER 11:04
PROVIDERS: Emergency Medicine
DX: R10.11 Right upper quadrant pain (principal); R31.9 Hematuria, unspecified; I10 Essential (primary) hypertension; I48.91 Unspecified atrial fibrillation; I25.10 Atherosclerotic heart disease of native coronary artery without angina pectoris; G51.0 Bell's palsy; Z86.73 Personal history of transient ischemic attack (TIA), and cerebral infarction without residual deficits; Z90.49 Acquired absence of other specified parts of digestive tract; Z96.653 Presence of artificial knee joint, bilateral; Z91.013 Allergy to seafood

== ENCOUNTER 2019-05-30 11:31 | Inpatient (IN) | payer OTHER ==
[~2019-05-30] VITALS: Ht 185.4 cm; Wt 109.5 kg
[2019-05-30 11:36] VITALS: BP 123/68
[2019-05-30 12:24] LABS: ABSOLUTE NEUTROPHILS 4.1 thou/uL (1.4-8.2); BASOPHILS 0.4 % (0.0-2.0); EOSINOPHILS 2.4 % (0.0-3.0); HEMATOCRIT 41.2 % (42.0-52.0); HEMOGLOBIN 13.4 gm/dL (14.0-18.0); LYMPHOCYTES 17.1 % (24.0-44.0); MCH 28.6 pg (26.0-34.0); MCHC 32.6 g/dL (28.0-37.0); MCV 87.8 fL (80.0-100.0); MONOCYTES 9.7 % (1.0-8.0); PLATELET COUNT 174 thou/uL (150-400); POLYS 70.4 % (36.0-66.0); RDW 16.1 % (10.5-14.5); WBC 5.8 thou/uL (4.0-11.0)
[2019-05-30 12:27] LABS: CALCIUM 9.3 mg/dL (8.5-10.1); CREATININE 1.4 mg/dL (0.7-1.3); POTASSIUM 3.5 mmol/L (3.5-5.1)
[2019-05-30 12:33] LABS: ALBUMIN 3.1 g/dL (3.4-5.0); TOTAL BILIRUBIN 1.3 mg/dL (<0.1-1.0); TOTAL PROTEIN 7.5 g/dL (6.4-8.2)
[2019-05-30 12:34] LABS: INR 1.2
--- NOTE | 2019-05-30 13:58 | EKG ---
[place] [address] [place] [address] ELECTROCARDIOGRAM REPORT Name: PATRICIA VILLANUEVA Room #: REG MALLORIE Flowers#: [id number] Admission: 05/30/19 Attend Phys: Discharge: Date of : [birth year] Report #: [id number] THIS REPORT FOR: //name// [facility] ED Test Date: 2019-05-30 Test Time: 12:44:44 Pat Name: PATRICIA VILLANUEVA Department: Room: Gender: M Polymerization Kettle Operator: GUI : 1930 Requested By: Marilyn Bowers Order Number: [id number] MD: Carlo Coffman Measurements Intervals [place] Rate: 74 P: [place]: QRS: -8 QRSD: 93 T: 22 QT: 397 QTc: 441 Interpretive Statements Atrial fibrillation Inferior infarct, old Probable anteroseptal infarct, old Compared to ECG 05/16/2019 13:35:19 No significant changes Electronically Signed On 05-30-2019 13:57:58 BEAMSTER by Carlo Coffman [email or web address] <ELECTRONICALLY SIGNED> By: Carlo Coffman MD 05/30/19 1357 1244 1244 Carlo Coffman MD /RAQUEL
[2019-05-30 15:33] VITALS: BP 131/78
[2019-05-30 15:49] VITALS: BP 132/71
[2019-05-30 17:12] VITALS: BP 135/82
[2019-05-30 20:20] VITALS: BP 129/80
[2019-05-30 21:13] VITALS: BP 114/57
[2019-05-31 07:59] VITALS: BP 119/65
[2019-05-31 14:51] VITALS: BP 142/54
[2019-05-31 19:20] VITALS: BP 140/56
[2019-06-01 05:18] LABS: ABSOLUTE NEUTROPHILS 2.1 thou/uL (1.4-8.2); BASOPHILS 0.5 % (0.0-2.0); EOSINOPHILS 3.1 % (0.0-3.0); HEMATOCRIT 35.8 % (42.0-52.0); HEMOGLOBIN 11.6 gm/dL (14.0-18.0); LYMPHOCYTES 27.5 % (24.0-44.0); MCH 28.8 pg (26.0-34.0); MCHC 32.4 g/dL (28.0-37.0); MCV 88.8 fL (80.0-100.0); MONOCYTES 10.1 % (1.0-8.0); PLATELET COUNT 113 thou/uL (150-400); POLYS 58.8 % (36.0-66.0); RBC 4.03 mil/uL (4.50-6.00); RDW 15.8 % (10.5-14.5); WBC 3.6 thou/uL (4.0-11.0)
[2019-06-01 05:37] LABS: ALBUMIN 2.5 g/dL (3.4-5.0); CREATININE 0.9 mg/dL (0.7-1.3); POTASSIUM 3.7 mmol/L (3.5-5.1); TOTAL BILIRUBIN 0.9 mg/dL (<0.1-1.0); TOTAL PROTEIN 6.4 g/dL (6.4-8.2)
[2019-06-01 07:39] VITALS: BP 114/50
[2019-06-02 07:25] VITALS: BP 132/74
[2019-06-02 16:26] VITALS: BP 130/57
[2019-06-02 19:45] VITALS: BP 117/53
[2019-06-03 06:01] LABS: HEMATOCRIT 38.4 % (42.0-52.0); HEMOGLOBIN 12.3 gm/dL (14.0-18.0); MCH 28.4 pg (26.0-34.0); MCHC 32.2 g/dL (28.0-37.0); MCV 88.2 fL (80.0-100.0); RBC 4.35 mil/uL (4.50-6.00); RDW 15.6 % (10.5-14.5); WBC 4.4 thou/uL (4.0-11.0)
[2019-06-03 06:15] LABS: ALBUMIN 2.6 g/dL (3.4-5.0); CALCIUM 8.8 mg/dL (8.5-10.1); CREATININE 1.1 mg/dL (0.7-1.3); MAGNESIUM 1.6 mg/dL (1.8-2.4); PHOSPHORUS 2.8 mg/dL (2.5-4.9); POTASSIUM 3.4 mmol/L (3.5-5.1); TOTAL BILIRUBIN 0.7 mg/dL (<0.1-1.0); TOTAL PROTEIN 6.5 g/dL (6.4-8.2)
[2019-06-03 08:02] VITALS: BP 111/57
[2019-06-03 16:58] VITALS: BP 120/67
[2019-06-03 19:55] VITALS: BP 126/72
[2019-06-04 05:44] LABS: ABSOLUTE NEUTROPHILS 2.3 thou/uL (1.4-8.2); BASOPHILS 0.7 % (0.0-2.0); EOSINOPHILS 7.4 % (0.0-3.0); HEMATOCRIT 37.1 % (42.0-52.0); HEMOGLOBIN 12.1 gm/dL (14.0-18.0); LYMPHOCYTES 22.9 % (24.0-44.0); MCH 28.5 pg (26.0-34.0); MCHC 32.6 g/dL (28.0-37.0); MCV 87.6 fL (80.0-100.0); MONOCYTES 9.9 % (1.0-8.0); PLATELET COUNT 104 thou/uL (150-400); POLYS 59.1 % (36.0-66.0); RBC 4.23 mil/uL (4.50-6.00); RDW 15.6 % (10.5-14.5)
[2019-06-04 06:00] LABS: ALBUMIN 2.5 g/dL (3.4-5.0); CALCIUM 8.6 mg/dL (8.5-10.1); MAGNESIUM 1.6 mg/dL (1.8-2.4); PHOSPHORUS 2.8 mg/dL (2.5-4.9); POTASSIUM 3.4 mmol/L (3.5-5.1)
[2019-06-04 08:04] VITALS: BP 129/61
[2019-06-04 14:51] VITALS: BP 121/66
--- NOTE | 2019-06-04 15:38 | H ---
[facility] [place] [address] HISTORY AND PHYSICAL Name: PATRICIA VILLANUEVA Room #: 450-P ADM IN M.R.#: [id number] Admission: 05/30/19 Attend Phys: Tyler Mcgovern MD, FAAF Discharge: Date of : [birth year] Report #: [id number] THIS REPORT FOR: //name// CC: Zaira Garcia DATE OF SERVICE: 05/30/2019 CHIEF COMPLAINT: Dysfunctional biliary drainage tube. HISTORY OF PRESENT ILLNESS: The patient is an 88-year-old white male, patient of Dr. Choi, who has a biliary drain for nonsurgical treatment of chronic cholecystitis. The tube became dysfunctional while in the subacute unit at [facility] and he was transferred to the Emergency Department at [facility]. From there, he was taken to the Interventional Radiology suite and the tube was changed out. It appears to be functioning well now. He is feeling much better and he is tolerating oral diet. 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 MEDICATIONS: Prednisone 10 mg p.o. daily, triamcinolone topically t.i.d. to affected skin DuoNeb q. 4 hours p.r.n., metoprolol tartrate 25 mg 1 p.o. b.i.d., acetaminophen 325 mg 2 p.o. q. 6 hours p.r.n. pain, K-Dur 20 mEq 1 p.o. b.i.d., Mucinex 600 mg 1 p.o. b.i.d. ALLERGIES: SHELLFISH and SHRIMP. SOCIAL HISTORY: Nonsmoker, nondrinker, retired currently in the subacute unit at [facility], resident at [facility]. REVIEW OF SYSTEMS: GENERAL: No fever or chills. EYES: No visual changes. ENT: No problems for hearing, swallow, taste or smell. CARDIOVASCULAR: No chest pain or palpitations. RESPIRATORY: No difficulty breathing. GASTROINTESTINAL: No nausea, vomiting, diarrhea. He did have a dysfunctional biliary drain, which has been unchanged. GENITOURINARY: No dysuria. [address] [address] HISTORY AND PHYSICAL Name: PATRICIA VILLANUEVA Room #: 450-P [facility] IN .R.#: [id number] Admission: 05/30/19 Attend Phys: Tyler Mcgovern MD, FAAF Discharge: Date of : [birth year] Report #: [id number] MUSCULOSKELETAL: No muscle or joint pain. NEUROLOGIC: No current paresis, paralysis or paresthesias. DERMATOLOGIC: No disturbing lesions or rash. Remainder of system review is negative. OBJECTIVE: VITAL SIGNS: Temperature 36.3, pulse 63, respirations 12, blood pressure 123/68, O2 sat on room air is 98%. He weighs 106.142 kilograms or 234 pounds. He is in no acute distress, verbal, engaging in conversation. HEENT: Pupils equal, round, reactive to light and accommodation. Extraocular muscles intact. Pharynx unremarkable. NECK: Supple. COR: S1, S2. CHEST: Clear. ABDOMEN: Soft, nontender. Functioning cholecystostomy tube. EXTREMITIES: No edema. NEUROLOGIC: He is intact without focal deficit. ASSESSMENT: Dysfunctional biliary drain, changed (cholecystostomy tube), chronic cholecystitis. PLAN: Admit, resume regular diet. Continue current medications. General Surgery consult. <ELECTRONICALLY SIGNED> By: Tyler Mcgovern MD, PILAR, FACEP 06/04/19 1538 1327 1405 Tyler Mcgovern MD, PILAR, FACEP /nt
[2019-06-04 19:50] VITALS: BP 124/55
[2019-06-05] VITALS (13 sets, daily range): BP systolic 110–141; BP diastolic 52–88
[2019-06-05 06:05] LABS: HEMOGLOBIN 12.4 gm/dL (14.0-18.0); WBC 4.8 thou/uL (4.0-11.0)
[2019-06-05 06:10] LABS: BASOPHILS 0.4 % (0.0-2.0); EOSINOPHILS 7.7 % (0.0-3.0); HEMATOCRIT 38.2 % (42.0-52.0); LYMPHOCYTES 19.6 % (24.0-44.0); MCH 28.4 pg (26.0-34.0); MCHC 32.5 g/dL (28.0-37.0); MCV 87.3 fL (80.0-100.0); MONOCYTES 10.2 % (1.0-8.0); PLATELET COUNT 111 thou/uL (150-400); POLYS 62.1 % (36.0-66.0); RBC 4.38 mil/uL (4.50-6.00); RDW 15.9 % (10.5-14.5)
[2019-06-05 06:32] LABS: ALBUMIN 2.7 g/dL (3.4-5.0); CALCIUM 8.8 mg/dL (8.5-10.1); MAGNESIUM 2.2 mg/dL (1.8-2.4); PHOSPHORUS 2.9 mg/dL (2.5-4.9); POTASSIUM 3.7 mmol/L (3.5-5.1)
--- NOTE | 2019-06-05 17:13 | EKG ---
[place] [address] [facility] [place] [address] ELECTROCARDIOGRAM REPORT Name: PATRICIA VILLANUEVA Room #: 450-P ADM IN M.R.#: [id number] Admission: 05/30/19 Attend Phys: Tyler Mcgovern MD, FAAF Discharge: Date of : [birth year] Report #: [id number] THIS REPORT FOR: //name// [facility] Test Date: 2019-06-05 Test Time: 14:53:50 Pat Name: PATRICIA VILLANUEVA Department: Room: 450 P Gender: M Educational Administrator: Leatha CEBALLOS : 1930 Requested By: Iraj De Leon Order Number: [id number] MD: Rudi Bermudez Measurements Intervals [place] Rate: 106 P: [place]: QRS: -17 QRSD: 92 T: 29 QT: 361 QTc: 480 Interpretive Statements Atrial fibrillation Inferior infarct, old Anteroseptal infarct, old Compared to ECG 05/30/2019 12:44:44 No significant changes Electronically Signed On 06-05-2019 17:12:18 THERMOSTAT REPAIRER by Rudi Bermudez [email or web address] <ELECTRONICALLY SIGNED> By: Rudi Bermudez MD, [facility] 06/05/19 1712 1453 145 Rudi Bermudez MD, [facility] /EPI
[2019-06-05 17:25] LABS: HEMATOCRIT 43.3 % (42.0-52.0); HEMOGLOBIN 13.7 gm/dL (14.0-18.0); MCHC 31.7 g/dL (28.0-37.0); MCV 88.4 fL (80.0-100.0); RBC 4.9 mil/uL (4.50-6.00); RDW 15.9 % (10.5-14.5); WBC 13.3 thou/uL (4.0-11.0)
[2019-06-05 17:36] LABS: ALBUMIN 2.9 g/dL (3.4-5.0); CREATININE 1.4 mg/dL (0.7-1.3); PHOSPHORUS 4.3 mg/dL (2.5-4.9); POTASSIUM 5.2 mmol/L (3.5-5.1)
[2019-06-06 00:01] VITALS: BP 133/78
[2019-06-06 04:18] VITALS: BP 141/71
[2019-06-06 05:17] LABS: ABSOLUTE NEUTROPHILS 7.8 thou/uL (1.4-8.2); BASOPHILS 0.2 % (0.0-2.0); EOSINOPHILS 0.1 % (0.0-3.0); HEMATOCRIT 37.7 % (42.0-52.0); HEMOGLOBIN 12.3 gm/dL (14.0-18.0); LYMPHOCYTES 12.8 % (24.0-44.0); MCH 28.7 pg (26.0-34.0); MCHC 32.7 g/dL (28.0-37.0); MCV 87.9 fL (80.0-100.0); PLATELET COUNT 124 thou/uL (150-400); POLYS 78.9 % (36.0-66.0); RDW 15.9 % (10.5-14.5); WBC 9.8 thou/uL (4.0-11.0)
[2019-06-06 05:52] LABS: ALBUMIN 2.6 g/dL (3.4-5.0); CALCIUM 8.8 mg/dL (8.5-10.1); CREATININE 1.1 mg/dL (0.7-1.3); MAGNESIUM 2.3 mg/dL (1.8-2.4); PHOSPHORUS 4.2 mg/dL (2.5-4.9); POTASSIUM 4.4 mmol/L (3.5-5.1); TOTAL PROTEIN 6.1 g/dL (6.4-8.2)
[2019-06-06 08:06] VITALS: BP 137/89
[2019-06-06 15:21] VITALS: BP 136/51
[2019-06-06 19:39] VITALS: BP 129/61
[2019-06-07 04:25] VITALS: BP 116/67
[2019-06-07 05:56] LABS: ABSOLUTE NEUTROPHILS 4.9 thou/uL (1.4-8.2); BASOPHILS 0.3 % (0.0-2.0); HEMATOCRIT 33.7 % (42.0-52.0); LYMPHOCYTES 19.6 % (24.0-44.0); MCH 28.4 pg (26.0-34.0); MCHC 32.5 g/dL (28.0-37.0); MCV 87.3 fL (80.0-100.0); MONOCYTES 8.4 % (1.0-8.0); PLATELET COUNT 95 thou/uL (150-400); POLYS 70.7 % (36.0-66.0); RBC 3.86 mil/uL (4.50-6.00); RDW 15.7 % (10.5-14.5)
[2019-06-07 06:27] LABS: ALBUMIN 2.2 g/dL (3.4-5.0); CALCIUM 8.2 mg/dL (8.5-10.1); POTASSIUM 3.8 mmol/L (3.5-5.1); TOTAL BILIRUBIN 1.6 mg/dL (<0.1-1.0); TOTAL PROTEIN 6.2 g/dL (6.4-8.2)
[2019-06-07 07:22] VITALS: BP 107/64
[2019-06-07 15:27] VITALS: BP 143/73
[2019-06-07 19:45] VITALS: BP 142/59
[2019-06-08 04:20] VITALS: BP 131/56
[2019-06-08 05:50] LABS: ABSOLUTE NEUTROPHILS 3.2 thou/uL (1.4-8.2); BASOPHILS 0.4 % (0.0-2.0); EOSINOPHILS 1.9 % (0.0-3.0); HEMATOCRIT 33.7 % (42.0-52.0); HEMOGLOBIN 10.9 gm/dL (14.0-18.0); LYMPHOCYTES 21.3 % (24.0-44.0); MCH 28.5 pg (26.0-34.0); MCHC 32.3 g/dL (28.0-37.0); MCV 88.2 fL (80.0-100.0); MONOCYTES 9.6 % (1.0-8.0); PLATELET COUNT 95 thou/uL (150-400); POLYS 66.8 % (36.0-66.0); RBC 3.82 mil/uL (4.50-6.00); RDW 15.6 % (10.5-14.5); WBC 4.8 thou/uL (4.0-11.0)
[2019-06-08 05:58] LABS: ALBUMIN 1.9 g/dL (3.4-5.0); CALCIUM 8.9 mg/dL (8.5-10.1); POTASSIUM 3.7 mmol/L (3.5-5.1); TOTAL BILIRUBIN 1.4 mg/dL (<0.1-1.0); TOTAL PROTEIN 6.1 g/dL (6.4-8.2)
[2019-06-08 15:40] VITALS: BP 133/75
[2019-06-08 19:14] VITALS: BP 117/68
[2019-06-09 05:23] VITALS: BP 95/57
[2019-06-09 06:42] LABS: ABSOLUTE NEUTROPHILS 3.2 thou/uL (1.4-8.2); BASOPHILS 0.3 % (0.0-2.0); EOSINOPHILS 1.5 % (0.0-3.0); HEMATOCRIT 34.5 % (42.0-52.0); HEMOGLOBIN 11.2 gm/dL (14.0-18.0); LYMPHOCYTES 19.7 % (24.0-44.0); MCH 28.7 pg (26.0-34.0); MCHC 32.5 g/dL (28.0-37.0); MCV 88.1 fL (80.0-100.0); MONOCYTES 10.7 % (1.0-8.0); PLATELET COUNT 99 thou/uL (150-400); POLYS 67.8 % (36.0-66.0); RBC 3.92 mil/uL (4.50-6.00); RDW 15.6 % (10.5-14.5); WBC 4.7 thou/uL (4.0-11.0)
[2019-06-09 06:51] LABS: ALBUMIN 2.2 g/dL (3.4-5.0); CALCIUM 8.3 mg/dL (8.5-10.1); POTASSIUM 3.6 mmol/L (3.5-5.1); TOTAL BILIRUBIN 1.1 mg/dL (<0.1-1.0); TOTAL PROTEIN 6.4 g/dL (6.4-8.2)
[2019-06-09 07:59] VITALS: BP 141/84
[2019-06-09 16:07] VITALS: BP 150/86
--- NOTE | 2019-06-09 16:07 | PATH ---
[facility] [address] [place] [address] PATHOLOGY RPT PROCEDURE Name: PATRICIA CASTRO Room #: 360-P ADM IN M.R.#: [id number] Admission: 05/30/19 Date of : [birth year] Discharge: Report #: [id number] Path Case #: [id number] [facility] Accession Number: [id number] . 01 Material submitted: . gallbladder - GALLBLADDER . 01 Clinical history: . Cholecystitis, cholelithiasis . 02 Diagnosis: Gallbladder, cholecystectomy: - Moderate acute cholecystitis associated with ulceration, and extensive hemorrhage. - Cholelithiasis. (IUV:pit 06/09/2019) QTP 06/09/2019 1323 Local . 02 Electronically signed: . Zonia Sheffield MD, Pathologist NPI- [id number] . 01 Gross description: . The specimen is received in formalin, labeled "Patricia Castro, gallbladder". Received is a previously opened/torn gallbladder measuring 10.5 x 3.2 x 2.2 cm in greatest dimensions displaying a pink-jara serosal surface. The cystic neck cannot be identified. Opening the specimen reveals a velvety, light brown mucosa with a gallbladder wall thickness of 0.1 cm. Calculi are present displaying a light brown and multifaceted appearance, and no masses or lesions are noted grossly. The specimen is submitted representatively in cassette A1. (CAA; 06/06/2019) QAC/QAC 06/06/2019 1502 Local . 02 Pathologist provided ICD-10: K80.00 . 02 CPT . 607707 Specimen Comment: A courtesy copy of this report has been sent to [phone], [phone] Specimen Comment: [phone], , Specimen Comment: Report sent to ,DR DIAS,DR MABRY / DR BUSTOS Performed at: [address] [facility] [address], [place], [place] [id number] MD Augusto Burns MD Phone: [phone] [place] [address] PATHOLOGY RPT PROCEDURE Name: PATRICIA CASTRO Room #: 360-P ADM IN M.R.#: [id number] Admission: 05/30/19 Date of : [birth year] Discharge: Report #: [id number] Path Case #: [id number] Performed at: [address] [id number] MD Zonia Sheffield MD Phone: [phone]
[2019-06-09 18:00] VITALS: BP 132/63
[2019-06-09 19:35] VITALS: BP 139/79
[2019-06-10 04:00] VITALS: BP 120/73
[2019-06-10 06:17] LABS: ABSOLUTE NEUTROPHILS 2.8 thou/uL (1.4-8.2); BASOPHILS 0.2 % (0.0-2.0); EOSINOPHILS 1.5 % (0.0-3.0); HEMATOCRIT 32.3 % (42.0-52.0); HEMOGLOBIN 10.4 gm/dL (14.0-18.0); LYMPHOCYTES 21.9 % (24.0-44.0); MCH 28.5 pg (26.0-34.0); MCHC 32.1 g/dL (28.0-37.0); MCV 88.7 fL (80.0-100.0); MONOCYTES 10.4 % (1.0-8.0); PLATELET COUNT 104 thou/uL (150-400); RBC 3.64 mil/uL (4.50-6.00); WBC 4.2 thou/uL (4.0-11.0)
[2019-06-10 06:24] LABS: CALCIUM 8.3 mg/dL (8.5-10.1); CREATININE 0.9 mg/dL (0.7-1.3); POTASSIUM 3.7 mmol/L (3.5-5.1)
--- NOTE | 2019-06-10 08:00 | EKG ---
[address] [address] ELECTROCARDIOGRAM REPORT Name: PATRICIA VILLANUEVA Room #: 360-P ADM IN M.R.#: [id number] Admission: 05/30/19 Attend Phys: Zaira Choi MD Discharge: Date of : [birth year] Report #: [id number] THIS REPORT FOR: //name// [facility] Test Date: 2019-06-09 Test Time: 18:11:07 Pat Name: PATRICIA VILLANUEVA Department: Room: 360 P Gender: M Rn Spine: Leatha CEBALLOS : 1930 Requested By: Iraj De Leon Order Number: [id number] MD: Carlo Coffman Measurements Intervals [place] Rate: 98 P: [place]: QRS: -10 QRSD: 92 T: 24 QT: 380 QTc: 486 Interpretive Statements Atrial fibrillation Anteroseptal infarct, old Compared to ECG 06/05/2019 14:53:50 No significant changes Electronically Signed On 06-10-2019 8:00:02 DREDGE MASTER by Carlo Coffman [email or web address] <ELECTRONICALLY SIGNED> By: Carlo Coffman MD 06/10/19 0800 10 10 Carlo Coffman MD /RAQUEL
[2019-06-10 08:07] VITALS: BP 130/64
[2019-06-10 15:51] VITALS: BP 141/79
[2019-06-10 19:50] VITALS: BP 137/52
[2019-06-11 05:05] VITALS: BP 130/58
[2019-06-11 05:51] LABS: ABSOLUTE NEUTROPHILS 2.7 thou/uL (1.4-8.2); BASOPHILS 0.4 % (0.0-2.0); EOSINOPHILS 1.9 % (0.0-3.0); HEMATOCRIT 31.4 % (42.0-52.0); HEMOGLOBIN 10.3 gm/dL (14.0-18.0); LYMPHOCYTES 20.3 % (24.0-44.0); MCH 28.9 pg (26.0-34.0); MCHC 32.8 g/dL (28.0-37.0); MCV 88.3 fL (80.0-100.0); MONOCYTES 10.4 % (1.0-8.0); PLATELET COUNT 101 thou/uL (150-400); RBC 3.56 mil/uL (4.50-6.00); RDW 16.4 % (10.5-14.5); WBC 4.1 thou/uL (4.0-11.0)
[2019-06-11 07:00] LABS: ALBUMIN 2.1 g/dL (3.4-5.0); CALCIUM 8.4 mg/dL (8.5-10.1); POTASSIUM 3.8 mmol/L (3.5-5.1); TOTAL BILIRUBIN 1.2 mg/dL (<0.1-1.0); TOTAL PROTEIN 6.2 g/dL (6.4-8.2)
[2019-06-11 07:31] VITALS: BP 130/61
[2019-06-11 15:06] VITALS: BP 122/54
[2019-06-11 20:06] VITALS: BP 143/68
[2019-06-12 04:13] VITALS: BP 113/57
[2019-06-12 06:18] LABS: HEMATOCRIT 32.3 % (42.0-52.0); HEMOGLOBIN 10.4 gm/dL (14.0-18.0); MCH 28.6 pg (26.0-34.0); MCHC 32.2 g/dL (28.0-37.0); RBC 3.63 mil/uL (4.50-6.00); RDW 15.9 % (10.5-14.5)
[2019-06-12 06:41] LABS: CALCIUM 8.3 mg/dL (8.5-10.1); CREATININE 0.8 mg/dL (0.7-1.3); POTASSIUM 3.6 mmol/L (3.5-5.1)
[2019-06-12 07:26] VITALS: BP 121/56
[2019-06-12] MEDS ORDERED: OXYCODONE HCL 55 MG PO (07:55)
== END 2019-06-12 13:39 | DRG 908 ==
LOC: ER 11:31 → 4W 14:06 → EROBS 14:06 → 3W 14:06 → 4W 20:47 → 3W 20:47
PROVIDERS: Family Medicine; Nurse Practitioner Adult Health; Physician Assistant; Surgery; ADMIT Internal Medicine
PROC: 0W2FX0Z Change Drainage Device in Abdominal Wall, External Approach (ICD-10-PCS; 2019-05-30)
PROC: 0FT44ZZ Resection of Gallbladder, Percutaneous Endoscopic Approach (ICD-10-PCS; principal; 2019-06-05)
DX: T85.590A Other mechanical complication of bile duct prosthesis, initial encounter (principal); K80.10 Calculus of gallbladder with chronic cholecystitis without obstruction; E44.0 Moderate protein-calorie malnutrition; I48.19 Other persistent atrial fibrillation; D68.59 Other primary thrombophilia; I69.354 Hemiplegia and hemiparesis following cerebral infarction affecting left non-dominant side; K83.9 Disease of biliary tract, unspecified; I10 Essential (primary) hypertension; Z96.653 Presence of artificial knee joint, bilateral; I25.10 Atherosclerotic heart disease of native coronary artery without angina pectoris; R74.0 Nonspecific elevation of levels of transaminase and lactic acid dehydrogenase [LDH]; K59.00 Constipation, unspecified; E78.5 Hyperlipidemia, unspecified; Z95.5 Presence of coronary angioplasty implant and graft; Z79.01 Long term (current) use of anticoagulants; Z90.49 Acquired absence of other specified parts of digestive tract; Z91.013 Allergy to seafood; Z68.31 Body mass index [BMI] 31.0-31.9, adult
CPT/HCPCS: 10040; 10080; 10879; 50010; 50101; 50249; 50411; 50555; 50558; 51297; 51489; 52265; 52266; 53307; 53310; 53312; 54022; 54118; 55245; 56462; 56525; 56526; 56674; 62110; 62900; 70005

== ENCOUNTER → 2019-08-27 | Outpatient (CLI) | payer OTHER ==
[~2019-08-27] MED LIST changes: +OXYCODONE HCL 55 MG PO
[2019-08-27 12:16] LABS: CREATININE 1.1 mg/dL (0.7-1.3)
== END ==
LOC: CAT 11:36
PROVIDERS: Surgery
DX: K81.9 Cholecystitis, unspecified (principal); K76.0 Fatty (change of) liver, not elsewhere classified; M47.815 Spondylosis without myelopathy or radiculopathy, thoracolumbar region; M16.0 Bilateral primary osteoarthritis of hip